=== PATIENT | female | born 1985 | race Caucasian/White ===

== ENCOUNTER 2019-06-10 18:01 | Inpatient (IN) | payer MEDICAID, SELFPAY ==
--- NOTE | 2019-06-10 18:22 | W.PM.HP.N ---
History of Present Illness 33 yo at 41 4/7 with active labor today at home till 6 pm - transferred due to minimal cervical change - ~8cm at 2 pm and again at 4 pm. intact membranes, good mvmt. no freeman,visual changes, dizzy, n/v/d edc 05/30 - early sono consistent first delivered via primary c section for ftp after home and hosp supported labor with pit minor UTD on 24 week scan - 32 week scan confirmed GBS neg, RH pos meds: pn vits only O: uncomfortable with reg mod/strong ctx lungs - clear cvs- reg, no murmur abd - gravid uterus @ costal margin no edema distally cervix - soft, ant, 8 cm, copious mucous, intact, -2, no caput, clearly cara/oa FHTracing cat 1 - strong ctx q 4, scant decel with peak of ctx, mod variability Ass: potential for FTP as with first delivery - given is , not candidate for pit aug. Diana and her partner, Pankaj wish to focus on pain for starters - discussed r/b of epidural given nitrous not available (in use by other patients) They will have low threshold for moving to c/section - if little cervical change or descent over the next hour or two. Will cont monitir, get IV started, obtain routine labds - cont water prn, avoid food for now. Dr. Stein and Sherly Pickard CRNA are both aware. S. Genereaux Meds Home Medications and Allergies Allergies Allergy/AdvReac Type Severity Reaction Status Date / Time No Known Drug Allergies Allergy Unverified 06/21/17 16:07
[2019-06-10] MEDS: Lactated Ringers 1,000 ML 200 ML IV (18:30)
[2019-06-10] MEDS: Oxytocin 10 UNITS/ML VIAL IM (21:21)
== END 2019-06-10 23:25 | disposition home or self-care (01) | DRG 807 ==
PROVIDERS: Admitting Provider Family Medicine; PCP Family Medicine; Visit Provider Family Medicine
DX: O62.3 Precipitate labor (principal); Z37.0 Single live birth; O34.211 Maternal care for low transverse scar from previous cesarean delivery; O48.0 Post-term pregnancy; Z3A.41 41 weeks gestation of pregnancy
CPT/HCPCS: 99220; J2590

== ENCOUNTER 2024-04-12 10:17 | Outpatient (REF) | payer BC, MEDICAID, SELFPAY ==
--- OUTSIDE RECORDS SUMMARY | 2024-04-12 10:22 | XMS_ITS | Encounter Summary ---
Author Organization [facility] Address [address] [place] [address] Care Team Providers Care Medicine Man Name Role Phone Dejuan Garduno ND Primary Care Provider + Reason for Visit * Reason Comments Advice Only Encounter Details Date Type Department Care Team (Late st Contact Info) Description 01/15/2017 10:00 EDT Initial consult [facility] Obstetrics [facility] Midwifery - [address] [phone] Zach Kimball MD [address] [facility], [address] [place] [address] Fetus with viral damage via mother with problem, not applicable or unspecified fetus (Primary Dx) Discharge Disposition: Auto Discharge Social History Tobacco Use Types Packs/Day Years Used Date Smoking Tobacco: Never Assessed Comments Yes Sex and Gender Information Value Date Recorded Sex Assigned at Not on file Gender Identity Not on file Sexual Orientation Not on file documented as of this encounter Last Filed Vital Signs Vital Sign Reading Time Taken Comments Blood Pressure - - Pulse - - Temperature - - Respiratory Rate - - Oxygen Saturation - - Inhaled Oxygen Concentration - - Weight - - Height 158.8 cm (5' 2.5) 01/15/2017 1322 EDT Body Mass Index - - documented in this encounter Discharge Diagnoses Diagnosis O35.3XX0 Maternal care for (suspected) damage to fetus from viral disease in mother, not applicable or unspecified-O35.3XX0[ICD-10-CM] documented in this encounter Discharge Disposition Disposition Code Departure Means Destination Auto Discharge documented in this encounter Progress Notes * Zach Kimball MD - 01/15/2017 1000 EDT January 15December Roslynerica, SANDIE [address] [facility] [address] [place] [address] Re: Diana Farhad Dear Ms. Polo: I had the pleasure of meeting with Ms. Llamas and her partner today. As you know, she is a 31-year-old woman, 3 para 0020, presently at 19w1d. She was referred for an obstetrical screening ultrasound with the request we consult on any abnormal findings. Today we identified a hepatic echogenicity. The couple denies a family history of aneuploidy, genetic diseases/syndromes, multiple miscarriage, defects, stillbirth or mental retardation. She had an obstetrical ultrasound today, and a separate report is enclosed. The findings were essentially normal other than an echogenicity in the left liver margin near the stomach. Liver Calcifications (FLCs) FLCs are hyperechoic areas noted on ultrasound in the liver. The incidence has been estimatedto be 1:1000 to 1:1750.1 There have been a number of etiologies reported for FLCs including infection, vascular events that can affect the liver and hepatic tumors.2 Infectious etiologies have included TORCH infections, including parvovirus and varicella. The have been described as isolated findings or in association with other abnormalities. Some studies have also attempted to separate parenchymal from surface FLCs, though a correlation between location and etiology has not been consistent. Anselmo and Rodolfo segregated FLCs by location.3 They felt that surface calcifications were peritoneal calcifications secondary to meconium peritonitis after ruptured bowel. Nonetheless FLCs have not been directly linked to CF in any of the published series. Nonetheless, CF mutation screening is not unreasonable and has been recommended by some authors. Generally, those that are isolated have good prognoses. Carrie at al reported on 61 patients with FLC.1 Of these, 21 were isolated and 40 were associated with other abnormalities. Among those with other findings, a variety of aneuploidies, CMV and parvovirus were detected. Of those with isolated liver calcifications, one had trisomy 21 and one had parvovirus. Other smaller studies have examined the outcomes of fetuses with FLCs. Lexii and Matilde reported on 14 fetuses with FLCs.4 Of the 9 fetuses with isolated FLCs, all had good outcomes. Among the 5with other findings, trisomy 18 was noted in 2. A series of 33 patients described by Julio [id number] cases of isolated FLCs.5 Of those 25, one had CMV and the other 24 had good outcomes. Of the 8 with associated abnormalities, only 2 had good outcomes. Omid et al reported on 6 cases.6 All 3 of the cases of isolated FLC were normal. Pedrito described 5 fetuses with FLC.7 In that series, the 4 with isolated FLC were normal. Finally, Maci and Pedro reported on 7 cases.8 Of the 5 with iso lated calcifications, all were normal. One of the 2 with other findings had trisomy 18. Together, these smaller studies include 46 fetuses with isolated FLCs, and none of these fetuses had aneuploidy. Another study reported on 26 fetuses with isolated calcifications in the left upper quadrant of theabdomen.9 They did not distinguish between the calcifications noted along the stomach, in the liveror in the spleen. All of these fetuses did well with a normal outcome. In considering these articles together, we are left with about 93 fetuses with isolated calcifications in the liver or the LUQ. Among those one had parvovirus, one had CMV and one had Down syndrome. We do not have a large enough number of fetuses to be able to calculate a positive predictive value or relative risk. In the case with Down syndrome, we do not have information on the patient???s age or other risk factors. In any case, we would not generally think of this as a marker for trisomy 21. In my own experience, I have followed a number of women with isolated FLCs without any turning out to have anything wrong. We have seen one patient here with a gastric wall echogenicity that tur keo out to have CMV. I primarily discussed viral infections, aneuploidy and cystic fibrosis screening with them. She hadnot had prior aneuploidy testing. I discussed the risks and benefits of amniocentesis for karyotype and cell-free DNA testing. I reviewed the lack of therapy for CMV infections during and the fact that a significant number of women (30-40% in [place]) will be found to have an old CMV infection, which will leave her in the ???low?? risk rather than the ???no?? risk category. They have requested parvovirus, cell-free DNA testing and cystic fibrosis mutation screeningand those were drawn today. For ultrasound follow-up, I would also get a scan at 32-34 weeks??? to reassess the liver echogenicity. No follow-up scans have been scheduled so that you can decide what you would like to do yourselves and what you???d like done here. Thank you for referring this nice couple and allowing me to participate in their care. I spent my entire 15-minute session counseling them regarding the implications of the hepatic echogenicity. She indicated that she understood the issues that we discussed and that her questions had been answered.Should you have any questions or concerns, please feel free to contact me. Best regards, Zach Kimball MD Director, [facility] Professor of Obstetrics, Gynecology & Reproductive Sciences [facility], Dept. of OBGYN Division of Maternal- Medicine [email or web address] 1. Carrie BUSCH, Pepito A, Magali M, Jennifer F, Luis G, Mei Watkins. hepatic calcifications: diagnosis and outcome. Am J Obstet Gynecol 2002;187:1617-22. 2. Tim K, Kg D, Gill Peraza T. follow-up of hepatic calcification detected by ultrasound. Jbr-Btr 2000;83:231-3. 3. Anselmo SG, Rodolfo DJ. The significance of echogenic areas in the abdomen. Ultrasound Obstet Gynecol 1996;7:293-8. 4. Lucretiashtein M, Matilde S. diagnosis of liver calcifications. Obstet Gynecol 1995;86:739-43. 5. Sosa E, Kaycee Y, Fer A, Sadiq A, Russellon MY. pyelectasis: does gender modify the risk of major trisomies? Obstetrics and gynecology 2006;107:877-9. 6. Omid EF, Ryvannesa F, Melly C, Malia P, Anthony F. Hepatic cysts and hyperechogenicities: assessment and unifying theory on their origin. Pediatr Radiol 1994;24:569-72. 7. Pedrito R, Pedro DS, Kimberlee A, et al. ultrasonographic diagnosis of hepatic hyperechogenicities: clinical significance and implications for management. Ultrasound Obstet Gynecol 1996;7:251-5. 8. Maci Courtney, Pedro MARADIAGA. intrahepatic hyperechogenic foci: ultrasound diagnosisand outcome. Prenat Diagn 1998;18:339-42. 9. Moose EK, Edward EK, Darryl TH. Isolated echogenic foci in the left upper quadrant of the abdomen:are they significant? J Ultrasound Med 2004;23:483-8. documented in this encounter Plan of Treatment Not on file documented as of this encounter Results * CYSTIC FIBROSIS MUTATION ANALYSIS, 106 PANEL (01/15/2017 12:52 EDT) Pathologist [facility] Result Summary NEGATIVE 01/21/2017 7:46 EDT [facility] Result (Note) 01/21/2017 7:46 EDT [facility] Comment:None of the listed m utations were detected. Interpretation (Note) 01/21/2017 7:46 [facility] Comment: Having excluded the listed mutations, this result decreases the likelihood but does not exclude the possibility that this individual is a carrier of or affected with cystic fibrosis (CF). The degree to which this result reduces the patient's risk depends on the ethnic background and family history of the patient. Because this information was not provided, we are unable to provide a revised risk assessment at this time. . The risk that this individual is a carrier of another CF mutation is listed below. . Ethnicity ? Risk ? (Detection rate, Carrier Freq) Northern ? (91%, 10/07) Mixed ?134 ? (82%, 10/07) Southern ? 115 ? (79%, 10/07) Eastern ?127 ? (77%, 10/12) Ashkenazi Temple ? (97%, 10/07) [place] ? (91%, 10/07) ? (81%, ) Scottish ? 251 ? (82%, 46) Scottish* ? 194 ? (54%, ) *does not apply to individuals of [place] ancestry . These calculations are based on the mutation detection rates and population carrier frequencies noted in the chart and assume no family history of CF. Because there is little information available about the carrier frequency and mutation detection rates for individuals of other ethnicities, we are unable to provide a revised risk assessment for ethnicities other than those listed. . If the patient has a family history of CF, contact our laboratory for a revised risk assessment. If there is a suspected diagnosis of CF, correlation between other laboratory tests and clinical history is recommended. Additional genetic testing strategies, such as full gene analysis of the CFTR gene (CFTRZ / CFTR Gene, Full Gene Analysis), should be considered for identifying mutations that are not detected by this assay. Contact the [facility] at for further discussion regarding this option. . A genetic consultation may be of benefit. . ADDITIONAL INFORMATION An online research opportunity called [employer] ([email or web address]), a project of [employer], is available for the recipient of this genetic test. This patient registry collects de-identified genetic and health information to advance the knowledge of genetic variants. [facility] is a collaborator of [employer]. This may not be applicable for all tests. . Test results should be interpreted in the context of clinical findings, family history, and other laboratory data. Misinterpretation of results may occur if the information provided is inaccurate or incomplete. . Rare polymorphisms exist that could lead to false-negative or false-positive results. If results obtained do not match the clinical findings, additional testing should be considered. . Bone Marrow transplants from allogenic donors will interfere with testing. Call [facility] for instructions for testing patients who have received a bone marrow transplant. . Multiple in-silico evaluation tools may have been used to assist in the interpretation of these results. Of note, the sensitivity and specificity of these tools for the determination of pathogenicity is currently unvalidated. . This test was developed and its performance characteristics determined by [facility] in a manner consistent with CLIA requirements. This test has not been cleared or approved by the U.S. Food and Drug Administration. Specimen WB Whole Blood 01/21/2017 7:46 [facility] Method (Note) 01/21/2017 7:46 [facility] Comment: The multiplex PCR based assay utilizing the Cyphort Array platform was used to detect 106 mutations, including the 23 mutations specified in the [employer] (ACMG) standards for population based carrier screening. The mutations are as follows: [id number], ftncnI481, G542X, G85E, R117H, R0570W (TGG>TGA), 621+1G>T, 711+1G>T, Y3615H (C>A), J4114J (C>G), R334W, R347P, A455E, 1717-1G>A, R553X, R560T, G551D, 1898+1G>A, 2184delA, 2789+5G>A, 3120+1G>A, W1170L, 3659delC, 3849+10kbC>T, the deletion of exons 2-3, 296+2T>A, E60X, R75X, 394_395delTT, 405+1G>A, 406-1G>A, E92X, 444delA, 457TAT>G, R117C, Y122X, 574delA, 663delT, G178R, 711+5G>A, 712-1G>T, H199Y, P205S, L206W, 477xtu46, 935delA, 936delTA, zomufT091, 1078delT, G330X, T338I, R347H, R352Q, Q359K, T360K, 1288insTA, S466X (C>A), S466X (C>G), G480C, Q493X, 1677delTA, C524X, S549N, S549R (T>G), Q552X, A559T, 1811+1.6kbA>G, 1812-1G>A, 1898+1G>T, 1898+1G>C, 1898+5G>T, P574H, 6871isj04, 2043delG, 5106ivu9>A, 7019dio52odi0, 2108delA, 2143delT, 2183_2184delAAinsG, 2184insA, R709X, K710X, 2307insA, R764X, Q890X, 2869insG, 3171delC, 7118swo7, E7075L, W5835Z (TGG>TAG), F3664Z (C>G), P6254A (C>A), F6058T, H8439Q, M2706A, H8922L, 2241vty0, V4249W, B3203E (TGG>TAG), 3791delC, F0758Q, 3876delA, S6642Y, M2991Q, 3905insT, and 4016dupT mutations are detected. Poly T determination and confirmatory testing of homozygous results are performed as reflex tests when appropriate. Released By Yovani Brannon Jr., Ph.D. 01/21/2017 7:46 EDT [facility] Comment: Performed or Referred by: [facility], [facility] [place] [address], Lab Dir: Dallas Viramontes II, M.D., Ph.D. Blood specimen (specimen) BLOOD SPECIMEN / Unknown 01/15/2017 12:52 EDT 01/15/2017 13:24 EDT Zach Kimball MD CHEMISTRY & BLOO D GAS ORDERABLES [facility] [address] [place] [address] * PARVOVIRUS ANTIBODY (01/15/2017 12:52 EDT) Parvovirus B19 Ab, IgG, S 0.21 <0.90 index 01/19/2017 8:06 EDT [facility] Comment: (Note) Negative Parvovirus B19 Ab, IgM, S 0.11 <0.90 index 01/19/2017 8:06 EDT [facility] Comment: (Note) Negative Parvovirus Interpretation (Note) 01/19/2017 8:06 EDT [facility] Comment: No antibody detected. Performed by: [facility]: [facility] [address], [place] [address], Lab Dir: Dallas Viramontes II, M.D., Ph.D. Blood specimen (specimen) BLOOD SPECIMEN / Unknown 01/15/2017 12:52 EDT 01/15/2017 13:24 EDT Zach Kimball MD IMMUNOLOGY AND S EROLOGY ORDERABLES Performing Organization Address City/State/[facility] Co de Phone Number [facility] [address] [place] [address] documented in this encounter Visit Diagnoses Diagnosis Fetus with viral damage via mother with problem, not applicable or unspecified fetus- Primary documented in this encounter Care Teams Medicine Man Relationship Specialty Start Date End Date Dejuan Garduno ND [address] [place] [address],[address] [place] [address] PCP - General 01/14/17 documented as of this encounter
--- OUTSIDE RECORDS SUMMARY | 2024-04-12 10:22 | XMS_ITS | Clinical Summary ---
Author Organization [facility] Address [address] [place] [address] Care Team Providers Care Fitness/Wellness Director Name Role Phone Dejuan Garduno ND Primary Care Provider + Allergies No known active allergies Medications No known medications Active Problems Problem Noted Date Diagnosed Date complicated by genitourinary abn ormality 02/02/2019 Advanced maternal age in multigravida, second tr imester 02/02/2019 Resolved Problems Problem Noted Date Diagnosed Date Resolved Date Genetic counseling and testing 01/15/2017 02/02/2019 Fetus with viral damage via mother with problem 01/15/2017 02/02/2019 Encounters Date Type Department Care Team Description 03/20/2024 10:13 EDT - 03/20/2024 23:59 EDT Hospital Encounter [facility] [address] [place] [address] Inconclusive mammogram Discharge Disposition: Home or Self Care 03/10/2024 7:41 EDT - 03/10/2024 23:59 EDT Hospital Encounter [facility] [address] [place] [address] Encounter for screening mammogram for malignant neoplasm of breast Discharge Disposition: Home or Self Care from Last 3 Months Social History Tobacco Use Types Packs/Day Years Used Date Smoking Tobacco: Never Assessed Interpersonal Safety Answer Date Record ed Physically Hurt Never 04/15/2020 Verbally Threaten Not on file 04/15/2020 Sex and Gender Information Value Date Recorded Sex Assigned at Not on file Gender Identity Not on file Sexual Orientation Not on file Obstetrics History Para Term AB IAB SAB Ectopic Multiple Livin g Live Births 6 2 1 3 2 1 2 Date Outcome GA Total Labor Labor/2nd/3rd Weight Sex Type Anes PTL Kath A1 A5 Name Clin AB IAB IAB Para 2017 Term Living Last Filed Vital Signs Vital Sign Reading Time Taken Comments Blood Pressure - - Pulse - - Temperature - - Respiratory Rate - - Oxygen Saturation - - Inhaled Oxygen Concentration - - Weight - - Height 160 cm (5' 3) 03/10/2024 0750 EDT Body Mass Index - - Plan of Treatment Health Maintenance Due Date Last Done Comments Hepatitis C Screen 1983 Hepatitis B Vaccine (1 of 3 - 19+ 3-dose series) 10/29 COVID-19 Vaccine (2022- season) 2023 Procedures Procedure Name Priority Date/Time Associated Diagnosis Comments MA BREAST DIAGNOSTIC RIGHT Routine 03/20/2024 11:07 EDT Inconclusive mammogram MA BREAST SCREENING DESI BILATERAL Routine 03/10/2024 8:01 EDT Encounter for screening mammogram for malignant neoplasm of breast from Last 3 Months Results * MA BREAST DIAGNOSTIC RIGHT (03/20/2024 11:07 EDT) Anatomical Region Laterality Modality Breast Right Mammography 03/20/2024 13:0 2 EDT Impressions 03/20/2024 13:02 EDT RIGHT BREAST IMPRESSION: BI-RADS Category 3: Probably benign. * ??Loosely grouped calcifications in the posterior outer breast, probably benign in appearance. Risk versus benefits of short-term follow-up versus biopsy were discussed in detail with the patient. Patient is comfortable with proceeding with short- term follow-up. Therefore, follow-up diagnostic mammography is recommended in 6 months to ensure stability. RECOMMENDATION: * ??Follow-up right breast diagnostic mammography in 6 months. The interpreting radiologist discussed these findings and recommendations with the patient shortly after completion of the examination. OVERALL ASSESSMENT: BI-RADS Category 3: Probably benign. These results will be communicated to the patient via a lay letter from Radiology. [id number] Narrative 03/20/2024 13:02 EDT MA BREAST DIAGNOSTIC RIGHT ?? SIGNS AND SYMPTOMS/COMMENTS: * ??Right breast callback- suspicious findings on initial films; R92.2:Inconclusive mammogram. * ??Possible calcifications on recent baseline screening mammography. COMPARISONS: Baseline screen mammography on 03/10/2024. FINDINGS: RIGHT BREAST MAMMOGRAPHY: Full field digital whole breast 2-D ML, and spot magnification CC and ML views, were obtained. CAD technology was utilized. * ??The breasts are heterogeneously dense, which may obscure small masses. * ??Corresponding to the finding in question on recent baseline screening mammography, several loosely grouped tiny rounded and a few punctate calcifications are identified in the posterior outer breast. No associated mass or architectural distortion is identified. * ??It should be noted, multiple additional tiny rounded calcifications were identified in the remainder of both breasts on recent baseline screening mammography, otherwise relatively symmetric. Resulting Agency Comment [id number] Dejuan Garduno ND IMG MAMMOGRAPHY ORDERABLES * (ABNORMAL) MA BREAST SCREENING DESI BILATERAL (03/10/2024 8:01 EDT) Anatomical Region Laterality Modality Breast Bilateral Mammography 03/10/2024 10:2 0 EDT Impressions 03/10/2024 10:20 EDT Incomplete, need additional imaging evaluation. RECOMMENDATION: Need additional imaging evaluation. * ??Right breast diagnostic mammography recommended. OVERALL ASSESSMENT: BI-RADS 0: Incomplete- Need additional imaging evaluation and/ or prior mammograms for comparison. These results will be communicated to your patient via a lay letter from Radiology. If any additional imaging is needed we will contact your patient directly. [id number] Narrative 03/10/2024 10:20 EDT MA BREAST SCREENING DESI BILATERAL ??03/10/2024 7:46 AM History: ROUTINE SCREENING;Z12.31:Encounter for screening mammogram for malignant neoplasm of breast Comparison: ??This is the patient's baseline exam . ? Technique: Routine 3D tomosynthesis with synthesized 2D views with CAD Breast Composition: The breasts are heterogeneously dense, which may obscure small masses. Bilateral Breast Findings: Possible asymmetric calcifications in the posterior outer right breast. Left breast unremarkable. Resulting Agency Comment [id number] Rena Chapin IMG MAMMOGRAPHY O RDERABLES from Last 3 Months Care Teams Fitness/Wellness Director Relationship Specialty Start Date End Date Dejuan Garduno ND [address] [place] [address],[address] [place] [id number] PCP - General 01/14/17
--- OUTSIDE RECORDS SUMMARY | 2024-04-12 10:22 | XMS_ITS | Encounter Summary ---
Author Organization [facility] Address [address] [place] [address] Care Team Providers Care Auger Machine Offbearer Name Role Phone Dejuan Garduno ND Primary Care Provider + Encounter Details Date Type Department Care Team ([facility] st Contact Info) Description 01/26/2017 Documentation Visit [facility] Obstetrics & Midwifery - [facility] [address] [place], [place] [address] Shaheen Coppola MD [address] [facility], [address] [place] [address] Social History Tobacco Use Types Packs/Day Years Used Date Smoking Tobacco: Never Assessed Comments Yes Sex and Gender Information Value Date Recorded Sex Assigned at Not on file Gender Identity Not on file Sexual Orientation Not on file documented as of this encounter Progress Notes * Gege Alonso - 01/26/2017 1601 EDT Informaseq results received 01.26.17. Dr. Coppola has informed patient. Results faxed to referring provider. Josselin Alonso documented in this encounter Plan of Treatment Not on file documented as of this encounter Visit Diagnoses Not on filedocumented in this encounter Care Teams Auger Machine Offbearer Relationship Specialty Start Date End Date Dejuan Garduno ND [address] [place] [address],[address] [place] [address] PCP - General 01/14/17 documented as of this encounter
--- OUTSIDE RECORDS SUMMARY | 2024-04-12 10:22 | XMS_ITS | Encounter Summary ---
Author Organization Health system Address [address] [place] [address] Care Team Providers Care Screen Cleaner Name Role Phone Dejuan Garduno ND Primary Care Provider + Reason for Referral * Radiology Services (Routine/Next Available) - Authorization Not Required Specialty Diagnoses / Procedures Referred By Jacey t Referred To Contact Diagnoses Encounter for screening mammogram for malignant neoplasm of breast Procedures MA BREAST SCREENING DESI BILATERAL Rena Abdalla [address] [place] [address] [facility] Referral ID Status Reason Start Date Expiration Date Visits Requested Visits Authorized [id number] Authorization Not Required 01/18/2024 1 1 Reason for Visit * Radiology Services (Routine/Next Available) - Authorization Not Required Specialty Diagnoses / Procedures Referred By Jacey argueta Referred To Contact Diagnoses Encounter for screening mammogram for malignant neoplasm of breast Procedures MA BREAST SCREENING DESI BILATERAL Rena Abdalla [address] [place] [address] [facility] Referral ID Status Reason Start Date Expiration Date Visits Requested Visits Authorized [id number] Authorization Not Required 01/18/2024 1 1 Encounter Details Date Type Department Care Team (Latest Contact Info) Description 03/10/2024 7:41 EDT - 03/10/2024 23:59 EDT Hospital Encounter [facility] Mammography [address] [place], [place] [id number] Encounter for screening mammogram for malignant neoplasm of breast Discharge Disposition: Home or Self Care Social History Tobacco Use Types Packs/Day Years [...] 0750 EDT Body Mass Index - - documented in this encounter Discharge Disposition Disposition Code Departure Means Destination Home or Self Care documented in this encounter Plan of Treatment Not on file documented as of this encounter Procedures Procedure Name Priority Date/Time Associated Diagnosis Comments MA BREAST SCREENING DESI BILATERAL Routine 03/10/2024 8:01 EDT Encounter for screening mammogram for malignant neoplasm of breast documented in this encounter Results * (ABNORMAL) MA BREAST SCREENING DESI BILATERAL [...] needed we will contact your patient directly. [id number] Narrative 03/10/2024 10:20 EDT MA BREAST SCREENING [...] breast. Left breast unremarkable. Resulting Agency Comment [id number] Rena Broussard Luis Chapin IMG MAMMOGRAPHY O RDERABLES documented in this encounter Visit Diagnoses Diagnosis Encounter for screening mammogram for malignant neoplasm of breast Other screening mammogram documented in this encounter Care Teams Screen Cleaner Relationship Specialty Start Date End Date Dejuan Garduno ND [address] [place] [address],[address] [place] [phone] PCP - General 01/14/17 documented as of this encounter
--- OUTSIDE RECORDS SUMMARY | 2024-04-12 10:22 | XMS_ITS | Encounter Summary ---
Author Organization [facility] Address [address] [place] [address] Care Team Providers Care Industrial Conveyor Belt Repairer Name Role Phone Dejuan Garduno ND Primary Care Provider + Reason for Visit * Reason Onset Date Comments Results 01/26/2017 Encounter Details Date Type Department Care Team ([facility] Contact Info) Description 01/26/2017 Telephone [facility] Women's Services - [address] [phone] Shaheen Coppola MD [address] [facility], [address] [place] [address] Results Social History Tobacco Use Types Packs/Day Years Used Date Smoking Tobacco: Never Assessed Comments Yes Sex and Gender Information Value Date Recorded Sex Assigned at Not on file Gender Identity Not on file Sexual Orientation Not on file documented as of this encounter Miscellaneous Notes * Telephone Encounter - Shaheen Coppola MD - 01/26/2017 1524 EDT Called to report negative NIPT, negative CF mutation screen and negative Parvovirus results. Patient is aware. documented in this encounter Plan of Treatment Not on file documented as of this encounter Visit Diagnoses Not on filedocumented in this encounter Care Teams Industrial Conveyor Belt Repairer Relationship Specialty Start Date End Date Dejuan Garduno ND [address] [place] [address],[address] [place] [phone] PCP - General 01/14/17 documented as of this encounter
--- OUTSIDE RECORDS SUMMARY | 2024-04-12 10:22 | XMS_ITS | Encounter Summary ---
Author Organization [facility] Address [address] [place] [address] Care Team Providers Care Precision Optical Goods Worker Name Role Phone Dejuan Garduno ND Primary Care Provider + Reason for Referral * Radiology Services (Routine/Next Available) - Authorization Not Required Specialty Diagnoses / Procedures Referred By Jacey argueta Referred To Contact Diagnoses Inconclusive mammogram Procedures MA BREAST DIAGNOSTIC RIGHT Dejuan Garduno, ND [address] [place] [address],[address] [address] [facility] Referral ID Status Reason Start Date Expiration Date Visits Requested Visits Authorized [id number] Authorization Not Required 03/13/2024 1 1 Reason for Visit * Radiology Services (Routine/Next Available) - Authorization Not Required Specialty Diagnoses / Procedures Referred By Jacey argueta Referred To Contact Diagnoses Inconclusive mammogram Procedures MA BREAST DIAGNOSTIC RIGHT JunerehanaDejuan, ND [address] [facility],[address] [address] [facility] [place] Referral ID Status Reason Start Date Expiration Date Visits Requested Visits Authorized [id number] Authorization Not Required 03/13/2024 1 1 Encounter Details Date Type Department Care Team (Latest Contact Info) Description 03/20/2024 10:13 EDT - 03/20/2024 23:59 EDT Hospital Encounter [facility] - [facility] Mamm[place] [address] [place] [address] Inconclusive mammogram Discharge Disposition: Home or Self Care Social History Tobacco Use Types Packs/Day Years Used Date Smoking Tobacco: Never Assessed Interpersonal Safety Answer Date Record ed Physically Hurt Never 04/15/2020 Verbally Threaten Not on file 04/15/2020 Sex and Gender Information Value Date Recorded Sex Assigned at Not on file Gender Identity Not on file Sexual Orientation Not on file documented as of this encounter Discharge Disposition Disposition Code Departure Means Destination Home or Self Care documented in this encounter Plan of Treatment Not on file documented as of this encounter Procedures Procedure Name Priority Date/Time Associated Diagnosis Comments MA BREAST DIAGNOSTIC RIGHT Routine 03/20/2024 11:07 EDT Inconclusive mammogram documented in this encounter Results * MA BREAST DIAGNOSTIC RIGHT (03/20/2024 [...] patient via a lay letter from Radiology. [id number] Narrative 03/20/2024 13:02 EDT MA BREAST DIAGNOSTIC [...] mammography, otherwise relatively symmetric. Resulting Agency Comment [id number] Dejuan Garduno ND IM MAMMOGRAPHY ORDERABLES documented in this encounter Visit Diagnoses Diagnosis Inconclusive mammogram documented in this encounter Care Teams Precision Optical Goods Worker Relationship Specialty Start Date End Date Dejuan Garduno ND [address] [place] [address],[address] [place] [address] PCP - General 01/14/17 documented as of this encounter
--- OUTSIDE RECORDS SUMMARY | 2024-04-12 10:22 | XMS_ITS | Encounter Summary ---
Author Organization [facility] Address [address] [place] [address] Care Team Providers Care Perinatal Coordinator Name Role Phone Dejuan Garduno ND Primary Care Provider + Encounter Details Date Type Department Care Team (Late st Contact Info) Description 01/15/2017 Results Only Imaging [facility] [phone] Christ, December, PLANT ENGINEERING SUPERVISOR [address] [facility],[address] [place], [place] [address] Social History Tobacco Use Types Packs/Day Years Used Date Smoking Tobacco: Never Assessed Comments Yes Sex and Gender Information Value Date Recorded Sex Assigned at Not on file Gender Identity Not on file Sexual Orientation Not on file documented as of this encounter Plan of Treatment Not on file documented as of this encounter Procedures Procedure Name Priority Date/Time Associated Diagnosis Comments GROUP HOME DETAILED 01/15/2017 11:50 EDT documented in this encounter Results * GROUP HOME DETAILED (01/15/2017 11:50 EDT) Anatomical Region Laterality Modality Other 01/15/2017 11:5 0 EDT 01/15/2017 13:43 EDT Narrative 01/15/2017 13:43 [place]T [place] [address] due to finding. History ======= General History Height 157 cm Height (ft) ?5 ft Height (in) ?2 in Previous Outcomes ?3 Para ?? 0 Abortions (A) ??2 Maternal Assessment Height 157 cm Height (ft) ?5 ft Height (in) ?2 in Physical Exam Initial weight 63 kg Initial weight (lb) ?138 lb Initial BMI ?25.24 kg/m? Number of fetuses: 1. Dating ======= Method of dating: ??based on the LMP LMP on: ?09/03/2016 GA by LMP ??19 w + 1 d TARIQ by LMP : ? 06/10/2017 Stated Dating on: ?11/12/2016 GA at stated dating date 10 w + 2 d GA by stated dating ??19 w + 3 d TARIQ by stated dating: ?06/08/2017 Stated dating by: ?outside ultrasound Ultrasound examination on: 01/15/2017 GA by U/S based upon: ??AC, BPD, Femur GA by U/S ??19 w + 1 d TARIQ by U/S: ?06/10/2017 Assigned: ??Dating performed on 01/15/2017 Based on the LMP Assigned GA ?19 w + 1 d Assigned TARIQ: ??06/10/2017 General Evaluation Cardiac activity: Present. FHR 142 bpm. movements: visualized. Presentation: cephalic, spine anterior. Placenta: posterior. Umbilical cord: Cord vessels: 3 vessel cord. Cord insertion: placental insertion: normal. Amniotic fluid: Amount of AF: normal. Biometry Biometry BPD ?43.9 mm 57% 19w 2d Hadlock OFD ?58.1 mm 86% 20w 2d Ray HC 164.0 mm AC 136.4 mm ?43% 19w 1d Hadlock Femur ??29.6 mm 65% 19w 2d Ray Cerebellum tr ??19.9 mm 63% 19w 6d Watson CM 4.7 mm ??47% Nicolaides Nuchal fold ?4.44 mm Humerus ?29.5 mm 69% 19w 4d Ray EFW ?275 g Calculated by: Hadlock ([id number]) EFW (lb) ?? 0 lb EFW (oz) ?? 10 oz Cephalic index 0.76 ?16% Nicolaides HC / AC ?1.20 ?70% Hadlock FL / BPD ?? 0.67 ?44% Hadlock FL / AC ?0.22 ?62% Hadlock FHR ?142 bpm Head / Face / Neck [employer] 7.0 mm Nasal bone 5.0 mm Extremities / Bony Struc Radius 25.5 mm 64% Chitty Ulna ?? 27.4 mm 67% 20w 0d Ray Tibia ??27.4 mm 80% 19w 6d Ray Fibula 26.6 mm 53% 19w 2d Ray Foot ?? 31.0 mm 66% Chitty Anatomy Cranium: ?? normal Lateral ventricles: ?normal Choroid plexus: ?normal Midline falx: ??normal Cavum septi pellucidi: normal Cerebellum: ?normal Cisterna magna: ?normal Parenchyma: ?normal Cerebellar lobes: ??normal Vermis: ?normal Neck: ??normal Nuchal fold: ?? normal Lips: ??normal Profile: ?? normal Nose: ??normal Maxilla: ?? normal Mandible: ??normal 4-chamber view: ?normal RVOT: ??normal LVOT: ??normal Situs: normal Aortic arch: ?? normal SVC: ?? normal IVC: ?? normal 3-vessel view: normal 3-[id number]-[id number] view: normal Rt lung: ?? normal Lt lung: ?? normal Diaphragm: normal Cord insertion: ?normal Stomach: ?? normal Bladder: ?? normal Genitals: ??normal Abdom. wall: ?? normal Rt kidney: normal Lt kidney: normal Liver: abnormal Liver: calcification Cervical spine: ?normal Thoracic spine: ?normal Lumbar spine: ??normal Sacral spine: ??normal Skeleton: ??normal Arms: ??normal Legs: ??normal Rt arm: ?normal Lt arm: ?normal Rt hand: ?? normal Lt hand: ?? normal Rt leg: ?normal Lt leg: ?normal Rt foot: ?? normal Lt foot: ?? normal Gender: ?male Wants to know gender: ??yes Aneuploidy Screening Age ?31 yrs Echogenic focus: ?? no Include: ?? intracardiac echogenic focus Include: ?? ventriculomegaly Include: ?? nuchal fold Include: ?? echogenic bowel Include: ?? mild hydronephrosis Ventriculomegaly: ??no Nuchal fold: ?? normal Echogenic bowel: ?? no Pyelectasis: ?? no Short femur: ?? no Include: ?? short humerus Include: ?? nasal bone Short humerus: no Nasal bone: ?present Display risk: ??Risk at time of screening Background risk at time of screening ?? 471 Background risk at term ?563 Adjusted risk at time of screening 1,270 Adjusted risk at term ??1,520 Maternal Structures Uterus / Cervix Uterus: ?Appears normal Cervix: ?Appears normal Ovaries / Tubes / Adnexa Rt ovary: ??Visualized, normal appearance Lt ovary: ??Visualized, normal appearance Method ======== Transabdominal ultrasound examination, Voluson E10. View: Sufficient. Impression This study [place] a 16421 but was extended to a [address] [place] to [place]. [id number] Obstetrical ultrasound with and maternal evaluation, including detailed anatomic examination This is a matias gestation. Biometry is consistent with menstrual dating. There is a liver calcification in the LUQ. Otherwise, the anatomy appears normal as noted above; however, ultrasound cannot detect all anomalies. As per the [facility] guidelines, the following were evaluated and were normal: the cerebellum (including lobes and vermis), facial profile, the chest (including examination for masses, effusion, integrity of both sides of the diaphragm and lung parenchyma), abdomen for ascites, 12-long bones with normal architecture/position of limbs, hands and feet, placental insertion site of the umbilical cord and placenta for masses. The amniotic fluid volume is normal. There is trunk and extremity movement noted. Please see separate consultation letter. Follow-up Recommend follow-up at 32 weeks' to reassess the liver. Comment ========= This follow-up has not been scheduled. Procedure Note Zach Kimball MD - 01/15/2017 [place] [address] due to finding. History ======= General History Height 157 cm Height (ft) 5 ft Height (in) 2 in Previous Outcomes 3 Para 0 Abortions (A) 2 Maternal Assessment Height 157 cm Height (ft) 5 ft Height (in) 2 in Physical Exam Initial weight 63 kg Initial weight (lb) 138 lb Initial BMI 25.24 kg/m? Number of fetuses: 1. Dating ======= Method of dating: based on the LMP LMP on: 09/03/2016 GA by LMP 19 w + 1 d TARIQ by LMP : 06/10/2017 Stated Dating on: 11/12/2016 GA at stated dating date 10 w + 2 d GA by stated dating 19 w + 3 d TARIQ by stated datin06/08/2017 Stated dating by: outside ultrasound Ultrasound examination on: 01/15/2017 GA by U/S based upon: AC, BPD, Femur GA by U/S 19 w + 1 d TARIQ by U/S: 06/10/2017 Assigned: Dating performed on 01/15/2017 Based on the LMP Assigned GA 19 w + 1 d Assigned TARIQ: 06/10/2017 General Evaluation Cardiac activity: Present. FHR 142 bpm. movements: visualized. Presentation: cephalic, spine anterior. Placenta: posterior. Umbilical cord: Cord vessels: 3 vessel cord. Cord insertion: placental insertion: normal. Amniotic fluid: Amount of AF: normal. Biometry Biometry BPD 43.9 mm 57% 19w 2d Hadlock OFD 58.1 mm 86% 20w 2d Ray HC 164.0 mm AC 136.4 mm 43% 19w 1d Hadlock Femur 29.6 mm 65% 19w 2d Ray Cerebellum tr 19.9 mm 63% 19w 6d Watson CM 4.7 mm 47% Nicolaides Nuchal fold 4.44 mm Humerus 29.5 mm 69% 19w 4d Ray EFW 275 g Calculated by: Hadlock ([id number]) EFW (lb) 0 lb EFW (oz) 10 oz Cephalic index 0.76 16% Nicolaides HC / AC 1.20 70% Hadlock FL / BPD 0.67 44% Hadlock FL / AC 0.22 62% Hadlock FHR 142 bpm Head / Face / Neck [employer] 7.0 mm Nasal bone 5.0 mm Extremities / Bony Struc Radius 25.5 mm 64% Chitty Ulna 27.4 mm 67% 20w 0d Ray Tibia 27.4 mm 80% 19w 6d Ray Fibula 26.6 mm 53% 19w 2d Ray Foot 31.0 mm 66% Chitty Anatomy Cranium: normal Lateral ventricles: normal Choroid plexus: normal Midline falx: normal Cavum septi pellucidi: normal Cerebellum: normal Cisterna magna: normal Parenchyma: normal Cerebellar lobes: normal Vermis: normal Neck: normal Nuchal fold: normal Lips: normal Profile: normal Nose: normal Maxilla: normal Mandible: normal 4-chamber view: normal RVOT: normal LVOT: normal Situs: normal Aortic arch: normal SVC: normal IVC: normal 3-vessel view: normal [id number]-[id number] view: normal Rt lung: normal Lt lung: normal Diaphragm: normal Cord insertion: normal Stomach: normal Bladder: normal Genitals: normal Abdom. wall: normal Rt kidney: normal Lt kidney: normal Liver: abnormal Liver: calcification Cervical spine: normal Thoracic spine: normal Lumbar spine: normal Sacral spine: normal Skeleton: normal Arms: normal Legs: normal Rt arm: normal Lt arm: normal Rt hand: normal Lt hand: normal Rt leg: normal Lt leg: normal Rt foot: normal Lt foot: normal Gender: male Wants to know gender: yes Aneuploidy Screening Age 31 yrs Echogenic focus: no Include: intracardiac echogenic focus Include: ventriculomegaly Include: nuchal fold Include: echogenic bowel Include: mild hydronephrosis Ventriculomegaly: no Nuchal fold: normal Echogenic bowel: no Pyelectasis: no Short femur: no Include: short humerus Include: nasal bone Short humerus: no Nasal bone: present Display risk: Risk at time of screening Background risk at time of screening 471 Background risk at term 563 Adjusted risk at time of screening 1,270 Adjusted risk at term 1,520 Maternal Structures Uterus / Cervix Uterus: Appears normal Cervix: Appears normal Ovaries / Tubes / Adnexa Rt ovary: Visualized, normal appearance Lt ovary: Visualized, normal appearance Method ======== Transabdominal ultrasound examination, Voluson E10. View: Sufficient. Impression This study [place] as a 69373 but was extended to a 29029 [place] to [place]. [id number] Obstetrical ultrasound with and maternal evaluation, including detailed anatomic examination This is a matias gestation. Biometry is consistent with menstrual dating. There is a liver calcification in the LUQ. Otherwise, the anatomy appears normal as noted above; however, ultrasound cannot detect all anomalies. As per the [facility] guidelines, the following were evaluated and were normal: the cerebellum (including lobes and vermis), facial profile, the chest (including examination for masses, effusion, integrity of both sides of the diaphragm and lung parenchyma), abdomen for ascites, 12-long bones with normal architecture/position of limbs, hands and feet, placental insertion site of the umbilical cord and placenta for masses. The amniotic fluid volume is normal. There is trunk and extremity movement noted. Please see separate consultation letter. Follow-up Recommend follow-up at 32 weeks' to reassess the liver. Comment ========= This follow-up has not been scheduled. Ivonne GUTIERREZ US GROUP HOME ORDERAB LES documented in this encounter Visit Diagnoses Not on filedocumented in this encounter Care Teams Perinatal Coordinator Relationship Specialty Start Date End Date Dejuan Garduno ND [address] [place] [address],[address] [place] [address] PCP - General 01/14/17 documented as of this encounter
--- OUTSIDE RECORDS SUMMARY | 2024-04-12 10:22 | XMS_ITS | Encounter Summary ---
Author Organization [facility] Address [address] [place] [address] Care Team Providers Care Grinder Operator External Tool Name Role Phone Dejuan Garduno ND Primary Care Provider + Encounter Details Date Type Department Care Team (Late st Contact Info) Description 04/15/2017 Results Only Imaging [facility] [phone] Marilyn Ware [address] [place] [address] Social History Tobacco Use Types Packs/Day Years Used Date Smoking Tobacco: Never Assessed Comments Yes Sex and Gender Information Value Date Recorded Sex Assigned at Not on file Gender Identity Not on file Sexual Orientation Not on file documented as of this encounter Plan of Treatment Not on file documented as of this encounter Procedures Procedure Name Priority Date/Time Associated Diagnosis Comments ALF FOLLOW-UP 04/15/2017 15:13 EDT documented in this encounter Results * ALF FOLLOW-UP (04/15/2017 15:13 EDT) Anatomical Region Laterality Modality Other 04/15/2017 15:1 3 EDT 04/15/2017 15:37 EDT Narrative 04/15/2017 15:37 EDT Indication anomaly: gastrointestinal tract, hepatic calcification. History ======= General History Height 157 cm Height (ft) ?5 ft Height (in) ?2 in Previous Outcomes ?3 Para ?? 0 Abortions (A) ??2 Number of fetuses: 1. Maternal Assessment Height 157 cm Height (ft) ?5 ft Height (in) ?2 in Physical Exam Initial weight 63 kg Initial weight (lb) ?138 lb Initial BMI ?25.24 kg/m? Dating ======= LMP on: ?09/03/2016 GA by LMP ??32 w + 0 d TARIQ by LMP : ? 06/10/2017 Stated Dating on: ?11/12/2016 GA at stated dating date 10 w + 2 d GA by stated dating ??32 w + 2 d TARIQ by stated dating: ?06/08/2017 Stated dating by: ?outside ultrasound Ultrasound examination on: 04/15/2017 GA by U/S based upon: ??AC, BPD, Femur, HC GA by U/S ??32 w + 5 d TARIQ by U/S: ?06/05/2017 Assigned: ??Dating performed on 01/15/2017 Based on the LMP Assigned GA ?32 w + 0 d Assigned TARIQ: ??06/10/2017 General Evaluation Cardiac activity: Present. FHR 126 bpm. movements: visualized. Presentation: cephalic. Placenta: posterior. Amniotic fluid: Amount of AF: normal. MVP 4.3 cm. HALEY 13.3 cm. Q1 2.5 cm, Q2 4.3 cm, Q3 2.8 cm, Q4 3.8 cm. Anatomy Cranium: ?? normal Lateral ventricles: ?normal Midline falx: ??normal Cranium: ?? normal shape and size 4-chamber view: ?normal Stomach: ?? normal Kidneys: ?? normal Bladder: ?? normal Liver: abnormal Liver: calcification Gender: ?male Wants to know gender: ??yes Biometry Biometry BPD ?86.8 mm 98% 35w 0d Hadlock OFD ?103.3 mm ?84% 33w 5d Ray HC 302.2 mm ?64% 32w 5d [place] AC 283.8 mm ?61% 32w 3d Hadlock Femur ??59.1 mm 27% 30w 5d Ray Humerus ?54.3 mm 39% 31w 4d Ray EFW ?1,939 g 39% Narvaez Calculated by: Hadlock ([id number]) EFW (lb) ?? 4 lb EFW (oz) ?? 4 oz Cephalic index 0.84 ?88% Nicolaides HC / AC ?1.06 FL / BPD ?? 0.68 FL / AC ?0.21 MVP ?4.3 cm HALEY ?13.3 cm FHR ?126 bpm Method ======== Transabdominal ultrasound examination, Voluson E10. View: Sufficient. Impression [id number] Follow-up obstetrical ultrasound This is a matias gestation. biometry is consistent with prior dating. The single left liver calcification is again identified and unchanged. Except where noted above, the anatomy was not reviewed in detail as this is a follow-up study and the anatomy was previously assessed. Normal fluid and movement are noted. Follow-up Follow-up as clinically indicated. Procedure Note Tiera Meier MD - 04/15/2017 Indication anomaly: gastrointestinal tract, hepatic calcification. History ======= General History Height 157 cm Height (ft) 5 ft Height (in) 2 in Previous Outcomes 3 Para 0 Abortions (A) 2 Number of fetuses: 1. Maternal Assessment Height 157 cm Height (ft) 5 ft Height (in) 2 in Physical Exam Initial weight 63 kg Initial weight (lb) 138 lb Initial BMI 25.24 kg/m? Dating ======= LMP on: 09/03/2016 GA by LMP 32 w + 0 d TARIQ by LMP : 06/10/2017 Stated Dating on: 11/12/2016 GA at stated dating date 10 w + 2 d GA by stated dating 32 w + 2 d TARIQ by stated datin06/08/2017 Stated dating by: outside ultrasound Ultrasound examination on: 04/15/2017 GA by U/S based upon: AC, BPD, Femur, HC GA by U/S 32 w + 5 d TARIQ by U/S: 06/05/2017 Assigned: Dating performed on 01/15/2017 Based on the LMP Assigned GA 32 w + 0 d Assigned TARIQ: 06/10/2017 General Evaluation Cardiac activity: Present. FHR 126 bpm. movements: visualized. Presentation: cephalic. Placenta: posterior. Amniotic fluid: Amount of AF: normal. MVP 4.3 cm. HALEY 13.3 cm. Q1 2.5 cm, Q2 4.3 cm, Q3 2.8 cm, Q4 3.8 cm. Anatomy Cranium: normal Lateral ventricles: normal Midline falx: normal Cranium: normal shape and size 4-chamber view: normal Stomach: normal Kidneys: normal Bladder: normal Liver: abnormal Liver: calcification Gender: male Wants to know gender: yes Biometry Biometry BPD 86.8 mm 98% 35w 0d Hadlock OFD 103.3 mm 84% 33w 5d Ray HC 302.2 mm 64% 32w 5d [place] AC 283.8 mm 61% 32w 3d Hadlock Femur 59.1 mm 27% 30w 5d Ray Humerus 54.3 mm 39% 31w 4d Ray EFW 1,939 g 39% Narvaez Calculated by: Hadlock ([id number]) EFW (lb) 4 lb EFW (oz) 4 oz Cephalic index 0.84 88% Nicolaides HC / AC 1.06 FL / BPD 0.68 FL / AC 0.21 MVP 4.3 cm HALEY 13.3 cm FHR 126 bpm Method ======== Transabdominal ultrasound examination, Voluson E10. View: Sufficient. Impression [id number] Follow-up obstetrical ultrasound This is a matias gestation. biometry is consistent with prior dating. The single left liver calcification is again identified and unchanged. Except where noted above, the anatomy was not reviewed in detail as this is a follow-up study and the anatomy was previously assessed. Normal fluid and movement are noted. Follow-up Follow-up as clinically indicated. Marilyn Ware IMG US ALF ORDERA BLES documented in this encounter Visit Diagnoses Not on filedocumented in this encounter Care Teams Grinder Operator External Tool Relationship Specialty Start Date End Date Dejuan Garduno ND [address] [place] [address],[address] [place] [phone] PCP - General 01/14/17 documented as of this encounter
--- OUTSIDE RECORDS SUMMARY | 2024-04-12 10:22 | XMS_ITS | Encounter Summary ---
Author Organization [facility] Address [address] [place] [address] Care Team Providers Care Cigar Head Piercer Name Role Phone Dejuan Garduno ND Primary Care Provider + Reason for Visit * Reason Onset Date Comments Appointment Related 02/03/2019 Encounter Details Date Type Department Care Team ([facility] Contact Info) Description 02/03/2019 Telephone [facility] Ob[facility] Midwifery - [address] [phone] Zach Kimball MD [address] [facility], [address] [place] [address] Appointment Related Social History Tobacco Use Types Packs/Day Years Used Date Smoking Tobacco: Never Assessed Comments Yes Sex and Gender Information Value Date Recorded Sex Assigned at Not on file Gender Identity Not on file Sexual Orientation Not on file documented as of this encounter Miscellaneous Notes * Telephone Encounter - Cate Solares - 02/03/2019 1543 EDT LVM regarding scheduling of ultrasound documented in this encounter Plan of Treatment Not on file documented as of this encounter Visit Diagnoses Not on filedocumented in this encounter Care Teams Cigar Head Piercer Relationship Specialty Start Date End Date Dejuan Garduno ND [address] [place] [address],[address] [place] [address] [phone] PCP - General 01/14/17 documented as of this encounter
--- OUTSIDE RECORDS SUMMARY | 2024-04-12 10:22 | XMS_ITS | Encounter Summary ---
Author Organization [facility] Address [address] [place] [address] Care Team Providers Care Community Director Name Role Phone Dejuan Garduno ND Primary Care Provider + Encounter Details Date Type Department Care Team ([facility] st Contact Info) Description 01/21/2017 Results Only Imaging [facility] [phone] ChristDecember, GAS FURNACE INSTALLER [address] [facility] [address] [place] [address] Social History Tobacco Use Types Packs/Day Years [...] on filedocumented in this encounter Care Teams Community Director Relationship Specialty Start Date End Date Dejuan Garduno ND [address] [place] [address] [address] [place] [address] PCP - General 01/14/17 documented as of this encounter
--- OUTSIDE RECORDS SUMMARY | 2024-04-12 10:22 | XMS_ITS | Encounter Summary ---
Author Organization [facility] Address [address] [place] [address] Care Team Providers Care Campaign Management Senior Manager Name Role Phone Dejuan Garduno ND Primary Care Provider + Encounter Details Date Type Department Care Team (Late st Contact Info) Description 11/17/2018 Results Only Imaging [facility] [phone] Marilyn Ware [address] [place] [address] Social History Tobacco Use Types Packs/Day Years Used Date Smoking Tobacco: Never Assessed Sex and Gender Information Value Date Recorded Sex Assigned at Not on file Gender Identity Not on file Sexual Orientation Not on file documented as of this encounter Plan of Treatment Not on file documented as of this encounter Procedures Procedure Name Priority Date/Time Associated Diagnosis Comments HALFWAY 1ST TRIMESTER 11/17/2018 13: 25 EST documented in this encounter Results * HALFWAY 1ST TRIMESTER (11/17/2018 13:25 EST) Anatomical Region Laterality Modality Other 11/17/2018 13:2 5 EST 11/17/2018 14:54 EST Narrative 11/17/2018 14:54 EST Indication Dating. Advanced maternal age. Prior . History ======= General History Height 157 cm Height (ft) ?5 ft Height (in) ?2 in Previous Outcomes ?5 Para ?? 1 Matias children born (T) ?1 Abortions (A) ??3 Matias living children (L) ??1 Other: Prior history of Maternal Assessment Height 157 cm Height (ft) ?5 ft Height (in) ?2 in Physical Exam Initial weight 59 kg Initial weight (lb) ?130 lb Initial BMI ?23.78 kg/m? Number of fetuses: 1. Dating ======= Method of dating: ??based on the LMP LMP on: ?08/23/2018 GA by LMP ??12 w + 2 d TARIQ by LMP : ? 05/30/2019 Ultrasound examination on: 11/17/2018 GA by U/S based upon: ??CRL GA by U/S ??12 w + 4 d TARIQ by U/S: ?05/28/2019 Assigned: ??Dating performed on 11/17/2018 Based on the LMP Assigned GA ?12 w + 2 d Assigned TARIQ: ??05/30/2019 General Evaluation Cardiac activity: Present. Placenta: Posterior. Cord vessels: normal cord insertion, 3 vessel cord. Amniotic fluid: normal. Biometry CRL ?60.6 mm 56% 12w 4d Hadlock BPD ?18.3 mm 48% 12w 6d Hadlock FHR ?158 bpm 26% Nicolaides Anatomy Cranium: ?? normal Cranium: ?? Normal shape and size Situs: normal Situs: normal situs Cord insertion: ?normal Stomach: ?? normal Kidneys: ?? normal Bladder: ?? normal Stomach: ?? normal situs Arms: ??visualized Legs: ??visualized Maternal Structures Uterus / Cervix Uterus: ?Appears normal Cervix: ?Appears normal Ovaries / Tubes / Adnexa Rt ovary: ??Visualized, normal appearance Rt ovary D1 ?3.4 cm Rt ovary D2 ?1.8 cm Rt ovary D3 ?2.1 cm Rt ovary mean ??2.5 cm Rt ovary vol ?? 6.9 cm cubed Lt ovary: ??Visualized, normal appearance Lt ovary D1 ?2.3 cm Lt ovary D2 ?2.6 cm Lt ovary D3 ?1.2 cm Lt ovary mean ??2.0 cm Lt ovary vol ?? 3.6 cm cubed Method ======== Transabdominal ultrasound examination, Voluson E10. View: Sufficient. Impression [id number] First trimester obstetrical US, transabdominal This is a matias gestation. CRL is consistent with menstrual dating. Normal first trimester anatomy as noted above including cardiac/gastric situs and 12 long bones with movement; however, first trimester sonography is limited in its ability to detect anomalies. Follow-up Follow-up as clinically indicated. DATE OF SERVICE: 11/17/2018 Procedure Note Zach Kimball MD, MD - 11/17/2018 Indication Dating. Advanced maternal age. Prior . History ======= General History Height 157 cm Height (ft) 5 ft Height (in) 2 in Previous Outcomes 5 Para 1 Matias children born (T) 1 Abortions (A) 3 Matias living children (L) 1 Other: Prior history of Maternal Assessment Height 157 cm Height (ft) 5 ft Height (in) 2 in Physical Exam Initial weight 59 kg Initial weight (lb) 130 lb Initial BMI 23.78 kg/m? Number of fetuses: 1. Dating ======= Method of dating: based on the LMP LMP on: 08/23/2018 GA by LMP 12 w + 2 d TARIQ by LMP : 05/30/2019 Ultrasound examination on: 11/17/2018 GA by U/S based upon: CRL GA by U/S 12 w + 4 d TARIQ by U/S: 05/28/2019 Assigned: Dating performed on 11/17/2018 Based on the LMP Assigned GA 12 w + 2 d Assigned TARIQ: 05/30/2019 General Evaluation Cardiac activity: Present. Placenta: Posterior. Cord vessels: normal cord insertion, 3 vessel cord. Amniotic fluid: normal. Biometry CRL 60.6 mm 56% 12w 4d Hadlock BPD 18.3 mm 48% 12w 6d Hadlock FHR 158 bpm 26% Nicolaides Anatomy Cranium: normal Cranium: Normal shape and size Situs: normal Situs: normal situs Cord insertion: normal Stomach: normal Kidneys: normal Bladder: normal Stomach: normal situs Arms: visualized Legs: visualized Maternal Structures Uterus / Cervix Uterus: Appears normal Cervix: Appears normal Ovaries / Tubes / Adnexa Rt ovary: Visualized, normal appearance Rt ovary D1 3.4 cm Rt ovary D2 1.8 cm Rt ovary D3 2.1 cm Rt ovary mean 2.5 cm Rt ovary vol 6.9 cm cubed Lt ovary: Visualized, normal appearance Lt ovary D1 2.3 cm Lt ovary D2 2.6 cm Lt ovary D3 1.2 cm Lt ovary mean 2.0 cm Lt ovary vol 3.6 cm cubed Method ======== Transabdominal ultrasound examination, Voluson E10. View: Sufficient. Impression [id number] First trimester obstetrical US, transabdominal This is a matias gestation. CRL is consistent with menstrual dating. Normal first trimester anatomy as noted above including cardiac/gastric situs and 12 long bones with movement; however, first trimester sonography is limited in its ability to detect anomalies. Follow-up Follow-up as clinically indicated. DATE OF SERVICE: 11/17/2018 Marilyn Ware IMG US HALFWAY ORDERA BLES documented in this encounter Visit Diagnoses Not on filedocumented in this encounter Care Teams Campaign Management Senior Manager Relationship Specialty Start Date End Date Archdeacon, Dejuan T, ND [address] [place] [address],[address] [place] [phone] PCP - General 01/14/17 documented as of this encounter
--- OUTSIDE RECORDS SUMMARY | 2024-04-12 10:22 | XMS_ITS | Data Portability ---
Author Organization MD - [facility], Historical Import Interface Address [address] [place] [address] Assessment Encounter Date Assessment Date Assessment LastModified by Organization Details LastModified Time 08/11/2023 08/11/2023 08/11/23 OD APRO, FMX, JARET w/Dr Elizabeth (self pay) NHV: 6M APRO, JARET, TERMITE TECHNICIAN Completed Procedures D1110 - Prophylaxis - adult D0120 - Periodic oral evaluation - established patient D0210 - Intraoral - comprehensive series of radiographic images D0602 - Caries risk assessment and documentation, with a finding of moderate risk CC: No tooth concerns HHX: Reviewed, no changes. No CI to TX. BP: 112/69?? P: 65?? EOE/IOE: No s/s of hard or soft tissue pathology. Exam: Pt is 37yo, presents for APRO. Overdue, last APRO in 02/2022. Took FMX - reviewed by Dr Elizabeth. JARET by Dr Elizabeth. No caries noted. No tx indicated.?? Hx of SDF to #14-L towards M - 02/2022 - looks good today. Caries Risk: Mod POH: Brushin/day Flossing: Not often. Using ACT rinse Plaque: Lt Calculus: LT+ generalized, MOD max/clay ant?? Stain: Sl Bleeding: Mod generalzied Gingival tissues: [place] and pap redness OHI: Recommended brushing 2x/daily, flossing 1x/daily, using NaF rinse daily. Explained plaque, gingivitis, tartar, decay and perio. Perio: Stage I, localized, Grade A - TERMITE TECHNICIAN from 02/2022. Generalized 4mm pocketing, Recession: 1-2mm, localized. Discussed with pt- Recommended thorough OH, daily flossing to help improve and maintain gingival condition. New TERMITE TECHNICIAN at [facility] Txt: Scaled/deplaqued all 4 quads with HI, USS. Polished, flossed. (Epizyme, Salvador air purifier). Due to increased calculus build up today + mod bleeding recommended luke warm SWR for the next several days to help bring down inflammation. Personal: 2 sons: 4 and 6yo. Referral: None. , 2:59 PM. I attest that the treatment rendered today is completed and treatment met the standard of care. , 2:59 PM. Billing Provider: Desmond Gaona DDS [id number] Not available 09/15/2023 13:28:27 Plan of Treatment Reminders Order Date Submit Date Provider Last Modified By Organization Details Last Modified Time Details Appointments None record ed. Lab None record ed. Referral None record ed. Procedures None record ed. Surgeries None record ed. Imaging None record ed. Medication Orders None record ed. Patient TargetsNo targets recorded. Patient InstructionsNo instructions recorded. Reason for Referral None Reported. Problems Name Status Onset Date Resolution Date Notes Provider Name and Address Organization Details Recorded Time Asthma Active 10/25/19 16 Asthma; Entered By: Marilyn Maddox Signed By: Nancy Harmon DMD Not Available [facility] 10/25/2022 13:58:31 Problem Notes None recorded. Medical Equipment None Reported. Allergies Allergen ID Allergen Name Allergen Category Reaction Reaction Severity Criticality Documentation Date Start Date Code Code System Note Provider Name and Address Organization Details Recorded Time 46812 No Allergy Informati on Available Not available Not available Not available Not available 10/24/2022 Not Available [facility] 3 04:36:29 Vitals Date Recorded Heart rate Systolic blood pressure Diastolic blood pressure Provider Name and Address Organization Details Last Updated DateTime 08/11/2023 65 /min 112 mm[Hg] 69 mm[Hg] Not Available [facility] 08/11/2023 14:45:51 Social History None recorded. Functional Status None recorded. Mental Status None recorded. Family History Nothing Reported. Medical History No medical history recorded. Gynecological HistoryNo gynecological history recorded. Obstetrics History GPAL:G 0 P 0 0 0 0 Past Encounters Encounter ID Performer Location Encounter Start Date Encounter Closed Date Diagnosis/Indication Diagnosis SNOMED-CT Code [id number] [facility] [address] [place] [address] 08/11/2023 11:04:24 09/15/2023 13:28:32 Health Concerns Section Related Observation LastModified by Organization Detai ls LastModified Time None Recorded Concern Status LastModified by Organization Details LastModified Time None Recorded Advance Directives Directive None Recorded Payers Encounter Date Sequence Insurance Name Policy Number Policy Felipe Covered Member ID Felipe Member ID Guarantor Name 08/11/2023 [employer] (MOVED TO HOLD) Diana Llamas [id number] Diana Llamas 08/11/2023 *SELF PAY* Diana Llamas OBGyn Episode No OBEpisode recorded.
--- OUTSIDE RECORDS SUMMARY | 2024-04-12 10:22 | XMS_ITS | Encounter Summary ---
Author Organization [facility] Address [address] [place] [address] Care Team Providers Care Plant Technical Specialist Name Role Phone Dejuan Garduno ND Primary Care Provider + Encounter Details Date Type Department Care Team (Late st Contact Info) Description 01/15/2017 Phlebotomy Only [facility] - [address] [address] Physician Industrial, Outpatient Fetus with viral damage via mother with problem, not applicable or unspecified fetus (Primary Dx) Social History Tobacco Use Types Packs/Day Years Used Date Smoking Tobacco: Never Assessed Comments Yes Sex and Gender Information Value Date Recorded Sex Assigned at Not on file Gender Identity Not on file Sexual Orientation Not on file documented as of this encounter Plan of Treatment Not on file documented as of this encounter Procedures Procedure Name Priority Date/Time Associated Diagnosis Comments CYSTIC FIBROSIS MUTATION ANALYSIS, 106 PANEL Routine 01/15/2017 12:52 EDT Fetus with viral damage via mother with problem, not applicable or unspecified fetus PARVOVIRUS B19 AB, IGG, IGM, S Routine 01/15/2017 12:52 EDT Fetus with viral damage via mother with problem, not applicable or unspecified fetus documented in this encounter Results * CYSTIC FIBROSIS MUTATION ANALYSIS, 106 PANEL (01/15/2017 12:52 EDT) Result Summary NEGATIVE 01/21/2017 7:46 EDT [facility] Result (Note) 01/21/2017 7:46 EDT [facility] Comment:None of the listed m utations were detected. Interpretation (Note) 01/21/2017 7:46 EDT [facility] Comment: Having excluded the listed [...] 10/07) Eastern ?127 ? (77%, 10/12) Ashkenazi Lutheran ? (97%, 10/07) [place]ar[place]uan [place] ? (91%, 10/07) ?338 ? (81%, ) South African ? 251 ? (82%, ) South African* ? 194 ? (54%, ) *does not apply to individuals of Polish ancestry . These calculations are based on [...] not detected by this assay. Contact the [facility] at for further discussion regarding this option. . A genetic consultation may be of benefit. . ADDITIONAL INFORMATION An online research opportunity called Local [employer] Launch (Zazoo), a project of [employer], is available for the recipient of this genetic test. This patient registry collects de-identified genetic and health information to advance the knowledge of genetic variants. [facility] is a collaborator of [employer]. This may not be applicable for all [...] allogenic donors will interfere with testing. Call [facility] for instructions for testing patients who have received a bone marrow transplant. . Multiple in-silico evaluation tools may have been used to assist in the interpretation of these results. Of note, the sensitivity and specificity of these tools for the determination of pathogenicity is currently unvalidated. . This test was developed and its performance characteristics determined by [facility] in a manner consistent with CLIA requirements. This test has not been cleared or approved by the U.S. Food and Drug Administration. Specimen WB Whole Blood 01/21/2017 7:46 [facility] Method (Note) 01/21/2017 7:46 [facility] Comment: The multiplex PCR based assay utilizing the [employer] [place] Array platform was used to detect 106 mutations, including the 23 mutations specified in the [place] [employer] (ACMG) standards for population based carrier screening. The mutations are as follows: bcnzoN660, wqyhzG655, G542X, G85E, R117H, H2887U (TGG>TGA), 621+1G>T, 711+1G>T, S6458Q (C>A), M2632D (C>G), R334W, R347P, A455E, 1717-1G>A, R553X, R560T, G551D, 1898+1G>A, 2184delA, 2789+5G>A, 3120+1G>A, E4314B, 3659delC, 3849+10kbC>T, the deletion of exons 2-3, 296+2T>A, E60X, R75X, 394_395delTT, 405+1G>A, 406-1G>A, E92X, 444delA, 457TAT>G, R117C, Y122X, 574delA, 663delT, G178R, 711+5G>A, 712-1G>T, H199Y, P205S, L206W, 613oxb93, 935delA, 936delTA, nlfrzL680, 1078delT, G330X, T338I, R347H, R352Q, Q359K, T360K, 1288insTA, S466X (C>A), S466X (C>G), G480C, Q493X, 1677delTA, C524X, S549N, S549R (T>G), Q552X, A559T, 1811+1.6kbA>G, 1812-1G>A, 1898+1G>T, 1898+1G>C, 1898+5G>T, P574H, 6246qal06, 2043delG, 7662woh0>A, 6668siq89goo1, 2108delA, 2143delT, 2183_2184delAAinsG, 2184insA, R709X, K710X, 2307insA, R764X, Q890X, 2869insG, 3171delC, 8668llg6, B0283J, P8382N (TGG>TAG), S0492O (C>G), O3483L (C>A), J8248T, N0489K, J5037X, A9058J, 5502tpl3, N2304I, J2654O (TGG>TAG), 3791delC, Z3736S, 3876delA, L9760B, T2822N, 3905insT, and 4016dupT mutations are detected. Poly T determination and confirmatory testing of homozygous results are performed as reflex tests when appropriate. Released By Yovani Brannon Jr., Ph.D. 01/21/2017 7:46 EDT [facility] Comment: Performed or Referred by: [facility], [facility] [place] [address], Lab Dir: Dallas Viramontes II, M.D., Ph.D. Blood specimen (specimen) BLOOD SPECIMEN / Unknown 01/15/2017 12:52 EDT 01/15/2017 13:24 EDT Zach Kimball MD CHEMISTRY & BLOO D GAS ORDERABLES [facility] [address] [place] [address] * PARVOVIRUS ANTIBODY (01/15/2017 12:52 EDT) Parvovirus B19 Ab, IgG, S 0.21 <0.90 index 01/19/2017 8:06 EDT [facility] Comment: (Note) Negative Parvovirus B19 Ab, IgM, S 0.11 <0.90 index 01/19/2017 8:06 EDT [facility] Comment: (Note) Negative Parvovirus Interpretation (Note) 01/19/2017 8:06 EDT [facility] Comment: No antibody detected. Performed by: [facility]: [address], [place] [address], Lab Dir: Dallas Viramontes II, M.D., Ph.D. Blood specimen (specimen) BLOOD SPECIMEN / Unknown 01/15/2017 12:52 EDT 01/15/2017 13:24 EDT Zach Kimball MD IMMUNOLOGY AND S EROLOGY ORDERABLES [facility] [address] [place] [address] documented in this encounter Visit Diagnoses Diagnosis Fetus with viral damage via mother with problem, not applicable or unspecified fetus- Primary documented in this encounter Care Teams Plant Technical Specialist Relationship Specialty Start Date End Date Dejuan Garduno ND [address] [place] [address],[address] [phone] PCP - General 01/14/17 documented as of this encounter
--- OUTSIDE RECORDS SUMMARY | 2024-04-12 10:22 | XMS_ITS | Encounter Summary ---
Author Organization [facility] Address [address] [place] [address] Care Team Providers Care Copying Machine Mechanic Name Role Phone Dejuan Garduno ND Primary Care Provider + Encounter Details Date Type Department Care Team (Late st Contact Info) Description 01/17/2019 Results Only Imaging [facility] [phone] Marilyn Ware [address] [place] [address] Social History Tobacco Use Types Packs/Day Years Used Date Smoking Tobacco: Never Assessed Sex and Gender Information Value Date Recorded Sex Assigned at Not on file Gender Identity Not on file Sexual Orientation Not on file documented as of this encounter Plan of Treatment Not on file documented as of this encounter Procedures Procedure Name Priority Date/Time Associated Diagnosis Comments [facility] DETAILED 02/02/2019 14:10 EDT documented in this encounter Results * [facility] DETAILED (02/02/2019 14:10 EDT) Anatomical Region Laterality Modality Other 02/02/2019 14:1 0 EDT 02/02/2019 15:31 EDT Narrative 02/02/2019 15:31 [place]T [place] [address] due to finding: bilateral urinary tract dilitation. Advanced maternal age. Prior . History ======= [...] kg/m? Number of fetuses: 1. Dating ======= Ultrasound examination on: 02/02/2019 GA by U/S based upon: ??AC, BPD, Femur, HC GA by U/S ??22 w + 4 d TARIQ by U/S: ?06/04/2019 Assigned: ??Dating performed on 11/17/2018 Based on the LMP Assigned GA ?23 w + 2 d Assigned TARIQ: ??05/30/2019 General Evaluation Cardiac activity: Present. FHR 140 bpm. movements: visualized. Presentation: maribel breech, spine maternal right. Placenta: posterior, fundal. Umbilical cord: Cord vessels: 3 vessel cord. Cord insertion: placental insertion: normal. Amniotic fluid: Amount of AF: normal. Biometry Biometry BPD ?53.2 mm 10% 22w 1d Hadlock OFD ?73.0 mm 77% 24w 2d Ray HC 203.0 mm ?25% 22w 3d [place] AC 183.6 mm ?38% 23w 1d Hadlock Femur ??39.0 mm 37% 22w 5d Ray Cerebellum tr ??25.9 mm 82% 24w 3d Watson CM 5.7 mm ??47% Nicolaides Nuchal fold ?4.79 mm Humerus ?38.3 mm 46% 23w 4d Ray EFW ?537 g Calculated by: Hadlock ([id number]-FL) EFW (lb) ?? 1 lb EFW (oz) ?? 3 oz Cephalic index 0.73 ?5% Nicolaides HC / AC ?1.11 FL / BPD ?? 0.73 FL / AC ?0.21 FHR ?140 bpm Head / Face / Neck Anesthesiologists' Assistant 5.2 mm Nasal bone 6.4 mm Urinary Tract Rt Renal pelvis ap 5.5 mm Lt Renal pelvis ap 5.5 mm Extremities / Bony Struc Radius 33.1 mm 45% Chitty Ulna ?? 37.5 mm 77% 24w 6d Ray Tibia ??36.4 mm 62% 23w 5d Ray Fibula 36.9 mm 62% 24w 0d Ray Foot ?? 43.6 mm 68% Chitty Anatomy Cranium: ?? normal Lateral ventricles: [...] normal IVC: ?? normal 3-vessel view: normal 8-djwssc-inssarr view: normal Rt lung: ?? normal Lt lung: ?? normal Diaphragm: normal Cord insertion: ?normal Stomach: ?? normal Bladder: ?? normal Genitals: ??normal Abdom. wall: ?? normal Rt kidney: abnormal Rt kidney: dilated renal pelvis Lt kidney: abnormal Lt kidney: dilated renal pelvis Liver: normal Cervical spine: ?normal Thoracic spine: ?normal Lumbar spine: ??normal Sacral spine: ??normal Skeleton: ??normal Arms: ??normal Legs: ??normal Rt arm: ?normal Lt arm: ?normal Rt hand: ?? normal Lt hand: ?? normal Rt leg: ?normal Lt leg: ?normal Rt foot: ?? normal Lt foot: ?? normal Gender: ?male Wants to know gender: ??yes Aneuploidy Screening Age ?35 yrs Echogenic focus: ?? no Include: ?? intracardiac echogenic focus Include: ?? ventriculomegaly Include: ?? nuchal fold Include: ?? echogenic bowel Include: ?? mild hydronephrosis Ventriculomegaly: ??no Nuchal fold: ?? normal Echogenic bowel: ?? no Pyelectasis: ?? yes Short femur: ?? no Include: ?? short humerus Include: ?? nasal bone Short humerus: no Nasal bone: ?present Display risk: ??Risk at time of screening Background risk at time of screening ?? 335 Background risk at term ?378 Adjusted risk at time of screening 239 Adjusted risk at term ??269 Other: She has had normal results on a cell-free DNA in maternal serum test. Maternal Structures Uterus / Cervix Uterus: ?Appears normal Cervix: ?Appears normal Ovaries / Tubes / Adnexa Rt ovary: ??Visualized, normal appearance Lt ovary: ??Visualized, normal appearance Method ======== Transabdominal ultrasound examination, Voluson E10. View: Sufficient. Impression [place] study [place] a 39432 but was [place] to a [address] [place] to [place]. [id number] Obstetrical ultrasound with and maternal evaluation, including detailed anatomic examination This is a matias gestation. Biometry is consistent with menstrual dating. Bilateral urinary tract dilation was noted. Otherwise, the anatomy appears normal as noted [...] the umbilical cord and placenta for masses. LEFT KIDNEY AP renal pelvis diameter: 5.5 mm Central calyceal dilation: absent Peripheral calyceal dilation: absent Parenchymal thickness: normal Parenchymal appearance (echogenicity, cysts): normal Ureter: normal RIGHT KIDNEY AP renal pelvis diameter: 5.5 mm Central calyceal dilation: absent Peripheral calyceal dilation: absent Parenchymal thickness: normal Parenchymal appearance (echogenicity, cysts): normal Ureter: normal Bladder: normal Unexplained oligohydramnios: No Urinary Tract Dilation (UTD) risk stratification: UTD A1 (low risk) The amniotic fluid volume is normal. There is trunk and extremity movement noted. Please see separate consultation letter. Follow-up Recommend follow-up at 32 weeks'. Comment ========= This follow-up has been scheduled. DATE OF SERVICE: 02/02/2019 Procedure Note Zach Kimball MD, - 02/02/2019 [place] [address] due to finding: bilateral urinary tract dilitation. Advanced maternal age. Prior . History ======= [...] kg/m? Number of fetuses: 1. Dating ======= Ultrasound examination on: 02/02/2019 GA by U/S based upon: AC, BPD, Femur, HC GA by U/S 22 w + 4 d TARIQ by U/S: 06/04/2019 Assigned: Dating performed on 11/17/2018 Based on the LMP Assigned GA 23 w + 2 d Assigned TARIQ: 05/30/2019 General Evaluation Cardiac activity: Present. FHR 140 bpm. movements: visualized. Presentation: maribel breech, spine maternal right. Placenta: posterior, fundal. Umbilical cord: Cord vessels: 3 vessel cord. Cord insertion: placental insertion: normal. Amniotic fluid: Amount of AF: normal. Biometry Biometry BPD 53.2 mm 10% 22w 1d Hadlock OFD 73.0 mm 77% 24w 2d Ray HC 203.0 mm 25% 22w 3d [place] AC 183.6 mm 38% 23w 1d Hadlock Femur 39.0 mm 37% 22w 5d Ray Cerebellum tr 25.9 mm 82% 24w 3d Watson CM 5.7 mm 47% Nicolaides Nuchal fold 4.79 mm Humerus 38.3 mm 46% 23w 4d Ray EFW 537 g Calculated by: Hadlock (ESZ-DR-[id number]-FL) EFW (lb) 1 lb EFW (oz) 3 oz Cephalic index 0.73 5% Nicolaides HC / AC 1.11 FL / BPD 0.73 FL / AC 0.21 FHR 140 bpm Head / Face / Neck Anesthesiologists' Assistant 5.2 mm Nasal bone 6.4 mm Urinary Tract Rt Renal pelvis ap 5.5 mm Lt Renal pelvis ap 5.5 mm Extremities / Bony Struc Radius 33.1 mm 45% Chitty Ulna 37.5 mm 77% 24w 6d Ray Tibia 36.4 mm 62% 23w 5d Ray Fibula 36.9 mm 62% 24w 0d Ray Foot 43.6 mm 68% Chitty Anatomy Cranium: normal Lateral ventricles: normal Choroid plexus: normal Midline falx: normal Cavum septi pellucidi: normal Cerebellum: normal Cisterna magna: normal Parenchyma: normal Cerebellar lobes: normal Vermis: normal Neck: normal Nuchal fold: normal Lips: normal Profile: normal Nose: normal Maxilla: normal Mandible: normal 4-chamber view: normal RVOT: normal LVOT: normal Situs: normal Aortic arch: normal SVC: normal IVC: normal 3-vessel view: normal [id number] view: normal Rt lung: normal Lt lung: normal Diaphragm: normal Cord insertion: normal Stomach: normal Bladder: normal Genitals: normal Abdom. wall: normal Rt kidney: abnormal Rt kidney: dilated renal pelvis Lt kidney: abnormal Lt kidney: dilated renal pelvis Liver: normal Cervical spine: normal Thoracic spine: normal Lumbar spine: normal Sacral spine: normal Skeleton: normal Arms: normal Legs: normal Rt arm: normal Lt arm: normal Rt hand: normal Lt hand: normal Rt leg: normal Lt leg: normal Rt foot: normal Lt foot: normal Gender: male Wants to know gender: yes Aneuploidy Screening Age 33 yrs Echogenic focus: no Include: intracardiac echogenic focus Include: ventriculomegaly Include: nuchal fold Include: echogenic bowel Include: mild hydronephrosis Ventriculomegaly: no Nuchal fold: normal Echogenic bowel: no Pyelectasis: yes Short femur: no Include: short humerus Include: nasal bone Short humerus: no Nasal bone: present Display risk: Risk at time of screening Background risk at time of screening 335 Background risk at term 378 Adjusted risk at time of screening 239 Adjusted risk at term 269 Other: She has had normal results on a cell-free DNA in maternal serum test. Maternal Structures Uterus / Cervix Uterus: Appears normal Cervix: Appears normal Ovaries / Tubes / Adnexa Rt ovary: Visualized, normal appearance Lt ovary: Visualized, normal appearance Method ======== Transabdominal ultrasound examination, [place]on E10. View: Sufficient. Impression [place] 75987 but was [place] a [address] [place] to [place]. [id number] Obstetrical ultrasound with and maternal evaluation, including detailed anatomic examination This is a matias gestation. Biometry is consistent with menstrual dating. Bilateral urinary tract dilation was noted. Otherwise, the anatomy appears normal as noted [...] the umbilical cord and placenta for masses. LEFT KIDNEY AP renal pelvis diameter: 5.5 mm Central calyceal dilation: absent Peripheral calyceal dilation: absent Parenchymal thickness: normal Parenchymal appearance (echogenicity, cysts): normal Ureter: normal RIGHT KIDNEY AP renal pelvis diameter: 5.5 mm Central calyceal dilation: absent Peripheral calyceal dilation: absent Parenchymal thickness: normal Parenchymal appearance (echogenicity, cysts): normal Ureter: normal Bladder: normal Unexplained oligohydramnios: No Urinary Tract Dilation (UTD) risk stratification: UTD A1 (low risk) The amniotic fluid volume is normal. There is trunk and extremity movement noted. Please see separate consultation letter. Follow-up Recommend follow-up at 32 weeks'. Comment ========= This follow-up has been scheduled. DATE OF SERVICE: 02/02/2019 Marilyn GUTIERREZ [facility] ORDERA BLES documented in this encounter Visit Diagnoses Not on filedocumented in this encounter Care Teams Copying Machine Mechanic Relationship Specialty Start Date End Date Dejuan Garduno ND [address] [place] [address],[address] [place] [phone] PCP - General 01/14/17 documented as of this encounter
--- OUTSIDE RECORDS SUMMARY | 2024-04-12 10:22 | XMS_ITS | Encounter Summary ---
Author Organization [facility] Address [address] [place] [address] Care Team Providers Care Veterinarian Name Role Phone Dejuan Garduno ND Primary Care Provider + Reason for Referral * LENS BLOCKER (Routine) - New Request Specialty Diagnoses / Procedures Referred By Jacey argueta Referred To Contact Diagnoses affected by genitourinary abnormality of fetus, single or unspecified fetus Advanced maternal age in multigravida, second trimester Procedures SNF FOLLOW-UP Zach Kimball MD [address] [place] [phone] Referral ID Status Reason Start Date Expiration Date V isits Requested Visits Authorized [id number] New Request 02/02/2019 1 1 Encounter Details Date Type Department Care Team (Late st Contact Info) Description 02/02/2019 13:00 EDT Initial consult [facility] - [address] [phone] Zach Kimball MD [address] [place] [phone] affected by genitourinary abnormality of fetus, single or unspecified fetus (Primary Dx); Advanced maternal age in multigravida, second trimester Social History Tobacco Use Types Packs/Day Years Used Date Smoking Tobacco: Never Assessed Comments Yes Sex and Gender Information Value Date Recorded Sex Assigned at Not on file Gender Identity Not on file Sexual Orientation Not on file documented as of this encounter Progress Notes * Zach Kimball MD, MD - 02/02/2019 1300 EDT February 02, 2019 Marilyn CoronadoDelaney, CPM, LM [address] [place] [phone] Re: Diana Llamas Dear Ms. Ware: I had the pleasure of meeting with Ms. Llamas and her partner today. As you know, she is a 33-year-old woman, 5 para 1031, presently at 23w2d. She was sent for an obstetrical ultrasound due tomaternal age with the request that we consult on abnormal findings. The couple denies a family history of aneuploidy, genetic diseases/syndromes, defects, multiple miscarriage, stillbirth or developmental delay/mental retardation. I had seen the couple previously about 2 years ago when their ultrasound had a livercalcification. She had an obstetrical ultrasound today, and the report of that study is enclosed. The findings were essentially normal except for bilateral urinary tract dilation, consisting of dilation of the renal pelves up to 5.5 mm on the right and 5.5 mm on the left (at this gestational age, normal is < 4.0 mm). Neither ureter was dilated. The bladder appeared normal. There was central but not peripheral, calyceal dilation. The renal parenchyma appearance and thickness were normal. A grading system of urinary tract dilation (UTD) has been proposed by a multidisciplinary panel in an attempt to standardize terminology and align grading with pre-existing grading systems, both to help with prognosis and with classification for research studies.1 In their analysis of the literature, they found that while cut-offs used for normal were inconsistent, themost common practice was to divide into 2 groups, with one group < 28 weeks? and theother ? 28 weeks? . Normal was defined as < 4.0 mm at < 28 weeks? and < 7.0 at ? 28 weeks???. They noted that resolution occurred in about 80% of cases when the dilation was between 4 and 7-8 mm during the second trimester but less than 15% with the dilation was > 9 mm.2-4 Consequently, follow-up ultrasound during the third trimester to evaluate interval changes was recommended. They also noted that prognosis is also influenced by other factors such as parenchyma and calyceal dilation. The following ultrasound parameters are included in their UT dilation classification system: Anterior-Posterior renal pelvic diameter (APRPD), Calyceal dilation, Parenchymal thickness, Parenchymal appearance, Ureter and bladder. Using these parameters, they developed a UT dilation risk stratification (no risk versus low versus increased risk). Using this table, this fetus falls in the increased low risk group. In keeping with these published guidelines, I would simply recommend a follow-up scan 32 weeks???. If there were an urologic anomaly, she would be at a slight risk of other anomalies in the VACTERL association. I have looked at the fetus, and while not all of the VACTERL anomalies are detectable prenatally, I do not see any evidence of the ones that could be identified at this time. In some series, a dilated renal pelvis has been associated with an increased risk for aneuploidy, particularly Down syndrome.5-8 Nonetheless, it is most commonly seen as a normal variant and appears more commonly in male fetuses (this fetus is male). While some studies have found this to be an unimportant as an isolated finding9,10 or when considered in a panel of possible Down syndrome markers,11 two studies have found isolated pyelectasis to be associated with aneuploidy.7,12 In his review ofisolated ultrasound markers for Down syndrome, Zach Nicholas cites the findings of Nicolaides??? group that pyelectasis is associated with a relative risk of 1.6, and notes that his group???s [Yu?? ?s] experience had been similar.13 There were no other trisomy 21 markers in this fetus. She had normal cell-free DNA in maternal serum testing, so her risk for trisomy 21 is extremely low evenwith the pyelectasis. At this point, I would not otherwise alter her care beyond her follow- up scan. Thank you for referring Ms. Llamas and allowing me to participate in her care. I spent my entire 15-minute session counseling her on the management of urinary tract dilation. She indicated that she understood the issues that we discussed and that her questions had been answered. Should you have any questions or concerns, please feel free to contact me. Best regards, Zach Kimball MD Director, Diagnostic Center Professor of Obstetrics, Gynecology & Reproductive Sciences [facility], Dept. of OBGYN Division of Maternal- Medicine [email or web address] 1. Gillian BERNABE, Baldev RADER, Kolton Bravo, et al. Multidisciplinary consensus on the classification of and urinary tract dilation (UTD classification system). J Pediatr Urol 2014;10:982-98. 2. Delgado S, Al-Habib A, Roosevelt S, Alexandria Bravo. Natural history of hydronephrosis diagnosed on mid-trimester ultrasound. Ultrasound Obstet Gynecol 2001;17:191-6. 3. Rafaela G, Christina L, Merle E, David JF, Demar Y. Outcome of urological abnormalities prenatally diagnosed by ultrasound. Diagn Ther 1996;11:181-90. 4. Keturah COYLE, Shahram M, José Miguel E, et al. Evaluation and follow-up of hydronephrosis. J Ultrasound Med 2001;20:1065-9. 5. Karina MARK, Chano J, Rhiannon JA, Sylvia BL, Eder WATTS, Jr. pyelectasis: a possible association with Down syndrome. Obstet Gynecol 1990;76:58-60. 6. Tracy JE, Marta JM, Tip GUIDO. pyelectasis and Down syndrome: is genetic amniocentesiswarranted? Obstet Gynecol 1992;79:770-2. 7. Wihayley EA, Thangajamilu M, Parilisandro BV, Tamura RK, Sabjamel RE. A prospective study of the association between isolated pyelectasis and chromosomal abnormality. Obstet Gynecol 1996;88:379-82. 8. John RD, Vera S, Emerson LINARES. pyelectasis: comparison of renal pathology withunilateral and bilateral pyelectasis. Prenat Diagn 1997;17:451-5. 9. Jigar LOMAS, Mohit MACHADO. Adjusting the risk for trisomy 21 on the basis of second-trimester ultrasonography. Am J Obstet Gynecol 1995;172:837-44. 10. Rebeca THOMPSON, Robina SOLER, Lissa M, Shahbaz F, Mindi CASEY. mild hydronephrosis and chromosomal defects: relation to maternal age and gestation. Diagn Ther 1995;10:349-55. 11. Siena O, Jaime MJ, Pily JA, Awais RO. Subtle ultrasonographic anomalies: do they improve the Down syndrome detection rate? Am J Obstet Gynecol 1998;178:441-5. 12. Melissa PM, Ryder LS, Janice M, Jem S. The association of aneuploidy and mild pyelectasis in an unselected population: the results of a multicenter study. Ultrasound Obstet Ovudjau8094;17:197-202. 13. Yu DA, Scott VL, El-Lily A, Gaurang S, Gopal F, Lisa DA. Isolated sonographic markers for detection of Down syndrome in the second trimester of . J Ultrasound Med 2001;20:1053-63. documented in this encounter Plan of Treatment Not on file documented as of this encounter Procedures Procedure Name Priority Date/Time Associated Diagnosis Comments ORDERS - SCANNED 04/11/2019 1:13 EDT SNF FOLLOW-UP Routine 04/05/2019 11:19 EDT affected by genitourinary abnormality of fetus, single or unspecified fetus Advanced maternal age in multigravida, second trimester documented in this encounter Results * ORDERS - SCANNED (04/11/2019 1:13 EDT) 04/11/2019 1:13 EDT Scan 2 Manager Van ADMISSION ORDERABLE S * SNF FOLLOW-UP (04/05/2019 11:19 EDT) Anatomical Region Laterality Modality Other 04/05/2019 11:1 9 EDT 04/05/2019 12:05 EDT Narrative 04/05/2019 12:05 EDT Indication anomaly: urinary tract dilation, bilateral. Advanced maternal age. Prior . History ======= General History Height 157 cm Height (ft) ?5 ft Height (in) ?2 in Previous Outcomes ?5 Para ?? 1 Matias children born (T) ?1 Abortions (A) ??3 Matias living children (L) ??1 Other: Prior history of Number of fetuses: 1. Maternal Assessment Height 157 cm Height (ft) ?5 ft Height (in) ?2 in Physical Exam Initial weight 59 kg Initial weight (lb) ?130 lb Initial BMI ?23.78 kg/m? Dating ======= Ultrasound examination on: 04/05/2019 GA by U/S based upon: ??AC, BPD, Femur, HC GA by U/S ??31 w + 4 d TARIQ by U/S: ?06/03/2019 Assigned: ??Dating performed on 11/17/2018 Based on the LMP Assigned GA ?32 w + 1 d Assigned TARIQ: ??05/30/2019 General Evaluation Cardiac activity: Present. FHR 136 bpm. movements: visualized. Presentation: cephalic, spine maternal right. Placenta: posterior. Umbilical cord: 3 vessel cord. Amniotic fluid: Amount of AF: normal. MVP 3.7 cm. HALEY 10.3 cm. Q1 2.1 cm, Q2 3.7 cm, Q3 3.1 cm, Q4 1.4 cm. Anatomy Cranium: ?? normal Lateral ventricles: ?normal Midline falx: ??normal Cranium: ?? normal shape and size 4-chamber view: ?normal Stomach: ?? normal Kidneys: ?? normal Bladder: ?? normal Gender: ?male Wants to know gender: ??yes Biometry Biometry BPD ?79.2 mm 31% 31w 6d Hadlock OFD ?95.6 mm 18% 30w 6d Ray HC 278.4 mm ?9% 29w 5d [place] AC 284.9 mm ?60% 32w 4d Hadlock Femur ??62.0 mm 62% 32w 0d Ray Humerus ?56.0 mm 64% 32w 4d Ray EFW ?1,907 g 31% Narvaez Calculated by: Hadlock ([id number]) EFW (lb) ?? 4 lb EFW (oz) ?? 3 oz Cephalic index 0.83 ?80% Nicolaides HC / AC ?0.98 FL / BPD ?? 0.78 FL / AC ?0.22 MVP ?3.7 cm HALEY ?10.3 cm FHR ?136 bpm Head / Face / Neck Rn Burn 4.5 mm Method ======== Transabdominal ultrasound examination, Voluson E10. View: Limited by advanced gestational age. Impression [id number] Follow-up obstetrical ultrasound This is a matias gestation. biometry is consistent with prior dating. The bilateral urinary tract dilitation has resolved. Except where noted above, the anatomy was not reviewed in detail as this is a follow-up study and the anatomy was previously assessed. Normal fluid and movement are noted. Follow-up Follow-up as clinically indicated. DATE OF SERVICE: 04/05/2019 Procedure Note Beth Cloud MD, - 04/05/2019 Indication anomaly: urinary tract dilation, bilateral. Advanced maternal age. Prior . History ======= General History Height 157 cm Height (ft) 5 ft Height (in) 2 in Previous Outcomes 5 Para 1 Matias children born (T) 1 Abortions (A) 3 Matias living children (L) 1 Other: Prior history of Number of fetuses: 1. Maternal Assessment Height 157 cm Height (ft) 5 ft Height (in) 2 in Physical Exam Initial weight 59 kg Initial weight (lb) 130 lb Initial BMI 23.78 kg/m? Dating ======= Ultrasound examination on: 04/05/2019 GA by U/S based upon: AC, BPD, Femur, HC GA by U/S 31 w + 4 d TARIQ by U/S: 06/03/2019 Assigned: Dating performed on 11/17/2018 Based on the LMP Assigned GA 32 w + 1 d Assigned TARIQ: 05/30/2019 General Evaluation Cardiac activity: Present. FHR 136 bpm. movements: visualized. Presentation: cephalic, spine maternal right. Placenta: posterior. Umbilical cord: 3 vessel cord. Amniotic fluid: Amount of AF: normal. MVP 3.7 cm. HALEY 10.3 cm. Q1 2.1 cm, Q2 3.7 cm, Q3 3.1 cm, Q4 1.4 cm. Anatomy Cranium: normal Lateral ventricles: normal Midline falx: normal Cranium: normal shape and size 4-chamber view: normal Stomach: normal Kidneys: normal Bladder: normal Gender: male Wants to know gender: yes Biometry Biometry BPD 79.2 mm 31% 31w 6d Hadlock OFD 95.6 mm 18% 30w 6d Ray HC 278.4 mm 9% 29w 5d [place] AC 284.9 mm 60% 32w 4d Hadlock Femur 62.0 mm 62% 32w 0d Ray Humerus 56.0 mm 64% 32w 4d Ray EFW 1,907 g 31% Narvaez Calculated by: Hadlock ([id number]-FL) EFW (lb) 4 lb EFW (oz) 3 oz Cephalic index 0.83 80% Nicolaides HC / AC 0.98 FL / BPD 0.78 FL / AC 0.22 MVP 3.7 cm HALEY 10.3 cm FHR 136 bpm Head / Face / Neck Rn Burn 4.5 mm Method ======== Transabdominal ultrasound examination, Voluson E10. View: Limited by advanced gestational age. Impression [id number] Follow-up obstetrical ultrasound This is a matias gestation. biometry is consistent with prior dating. The bilateral urinary tract dilitation has resolved. Except where noted above, the anatomy was not reviewed in detail as this is a follow-up study and the anatomy was previously assessed. Normal fluid and movement are noted. Follow-up Follow-up as clinically indicated. DATE OF SERVICE: 04/05/2019 Marilyn Ware [facility]ambi [facility] documented in this encounter Visit Diagnoses Diagnosis affected by genitourinary abnormality of fetus, single or unspecified fetus- Primary Advanced maternal age in multigravida, second trimester documented in this encounter Care Teams Veterinarian Relationship Specialty Start Date End Date Dejuan Garduno ND [address] [place] [address],[address] [place] [address] PCP - General 01/14/17 documented as of this encounter
--- OUTSIDE RECORDS SUMMARY | 2024-04-12 10:22 | XMS_ITS | Encounter Summary ---
Author Organization [facility] Address [address] [place] [address] Care Team Providers Care Coal Chute Worker Name Role Phone Dejuan Gardnuo ND Primary Care Provider + Encounter Details Date Type Department Care Team (Late st Contact Info) Description 01/15/2017 Results Only [facility] - [address] [address] Shaheen Coppola MD [address] [place] [address], [address] [place] [phone] Social History Tobacco Use Types Packs/Day Years Used Date Smoking Tobacco: Never Assessed Comments Yes Sex and Gender Information Value Date Recorded Sex Assigned at Not on file Gender Identity Not on file Sexual Orientation Not on file documented as of this encounter Plan of Treatment Not on file documented as of this encounter Procedures Procedure Name Priority Date/Time Associated Diagnosis Comments REFERRAL TEST 1 Routine 01/15/2017 12:53 EDT documented in this encounter Results * REFERRAL TEST 1 (01/15/2017 12:53 EDT) Test Name Kenia with Y Analysis 01/15/2017 13:52 EDT [facility] Result See Pathology Scanned Report in PRISM. 01/26/2017 12:43 EDT [facility] Comment:Test performed by [place] Ref Lab Integrated Genetics/LabCo rp 01/15/2017 13:52 EDT [facility] Date Sample Shipped 01/15/2017 01/15/2017 13:52 EDT [facility] TOPOGRAPHY UNKNOWN / Unknown 01/15/2017 12:53 EDT 01/15/2017 13:52 EDT Shaheen Coppola MD LAB INFO SERVICE AND SUPPORT & PHONE RESULT [facility] [address] [place] [address] documented in this encounter Visit Diagnoses Not on filedocumented in this encounter Care Teams Coal Chute Worker Relationship Specialty Start Date End Date Dejuan Garduno ND [address] [place] [address],[address] [place] [address] PCP - General 01/14/17 documented as of this encounter
--- OUTSIDE RECORDS SUMMARY | 2024-04-12 10:22 | XMS_ITS | Encounter Summary ---
Author Organization [facility] Address [address] [place] [address] Care Team Providers Care Career Development Specialist Name Role Phone Dejuan Garduno ND Primary Care Provider + Encounter Details Date Type Department Care Team ([facility] st Contact Info) Description 01/14/2017 Abstract [facility] Obstetrics & Midwifery - [address] [address] Shaheen Coppola MD [address] [facility], [address] [place] [phone] Social History Tobacco Use Types Packs/Day Years Used Date Smoking Tobacco: Never Assessed Sex and Gender Information Value Date Recorded Sex Assigned at Not on file Gender Identity Not on file Sexual Orientation Not on file documented as of this encounter Plan of Treatment Not on file documented as of this encounter Visit Diagnoses Not on filedocumented in this encounter Care Teams Career Development Specialist Relationship Specialty Start Date End Date Dejuan Garduno ND [address] [place] [address],[facility] [address] [place] [address] PCP - General 01/14/17 documented as of this encounter
--- OUTSIDE RECORDS SUMMARY | 2024-04-12 10:22 | XMS_ITS | Encounter Summary ---
Author Organization [facility] Address [address] [place] [address] Care Team Providers Care Divine Healer Name Role Phone Dejuan Garduno ND Primary Care Provider + Encounter Details Date Type Department Care Team (Late st Contact Info) Description 01/15/2017 10:[address] [facility] Women[facility] Services - [address] [address] Shaheen Coppola MD [address] [facility], [address] [place] [phone] Genetic counseling and testing (Primary Dx) Discharge Disposition: Auto Discharge Social [...] documented in this encounter Progress Notes * Shaheen Coppola MD - 01/15/2017 1000 EDT This office note has been dictated. documented in this encounter Consult Notes * Sahheen Coppola MD - 01/15/2017 0000 EDT [facility]ST[facility] CONS[facility]ATION - 01/15/2017 This patient is referred by Brianne Rodriguez, pediatric clinical dietician with the [facility] midwifery service. The indication for today's consultation is the patient's concerns about chromosome abnormality riskin . Ms Llamas comes to today's consultation accompanied by her , Pankaj. She reports the present is her third. I did not inquire what became of her other 2 pregnancies, they were either spontaneous or induced terminations. She reports the present has been basically completely uncomplicated. I then went on to try to understand her concerns. She reports that she presented for care somewhat late and missed the opportunity for conventional Down syndrome screening. Because of that, she has had nagging worries about the possibility of abnormalities and wants to discuss what further testing options exist. I went on to explain carefully to the couple that screening in is usually restricted to efforts to identify pregnancies that have an increased risk of chromosome abnormalities such as trisomy 21, the cause of Down syndrome, or trisomy 13 and 18. I emphasized carefully to them that this isnot a comprehensive screen for all different possible genetic abnormalities and that such as screenreally does not exist. We then talked about the fact that her age- related risk of Down syndrome is approximately 1 in 600 based on the fact that she will be 31 at the time of expected delivery. As I was clear in saying, this certainly does not represent an elevated risk by conventional standards. No netheless, Down syndrome screening is routinely offered to all women, regardless of age orprior risk. I then explained to them that cell-free DNA testing is available and could be used in this situation. The advantage of performing a cell-free DNA test is that it would decrease the risk by 100- fold or so if it were normal and that it would have a 99% sensitivity to identify an affected . Another aspect of the cell-free DNA testing that is good is that the incidence of false positives is quite low. I did explain to them that insurance may not cover cell-free DNA testing in a low risk individual and that they should be prepared to cover out of pocket expenses if they want to pursue this testing. Following this discussion, the couple was clear in saying that they did want to pursue cell-free offetal DNA testing and they also wanted to discuss the role of ultrasound. I explained to them that ultrasound is a tool that we do use to identify pregnancies with chromosome abnormalities; however, in the case of Down syndrome it is not terribly sensitive and has a high incidence of false positives. On the other hand, ultrasound is a great tool for the identification of structural abnormalities of various kinds and should be looked at as more of a tool for structural and growth abnormalities as opposed to being a tool for identification of chromosome abnormalities. Following this discussion, we then reviewed family history. The patient's reports that his father is affected with Waldenstrom's macroglobulinemia and I explained to the couple that I am unaware of this having a particular genetic basis for this to be a reason for concern. He then explainedthat his father has 2 half-siblings and 1 full sibling and none of them have any particular problems and on his mother's side also there is no particular issues that he is aware of. He reports that he and his 2 siblings have had good health and no known issues and that he does not know of anybody in his extended family with any potentially inherited things such as cystic fibrosis, spinal muscular atrophy or others. Likewise, the patient herself has a very small family with no siblings. She doeshave one first cousin who is developmentally normal and one aunt who is also normal. She is of general mixed ancestry, as is her partner. Following this discussion, I did review recessive genetic carrier screening with this couple. Giventhe fact that she is nearly 20 weeks gestation, I suggested that carrier screening probably is not terribly relevant to this , but may be something they want to pursue in a subsequent . I did make available to them the possibility of CF and SMA screening should they want it. In summary, this is a 31-year-old 1 at 19 weeks who is worried about the possibility of genetic abnormalities. She will do ultrasound here today, as well as a cell-free DNA test. I explained that results will take about 10 days and will be reported to her referring provider. This consultation was entirely devoted to discussion and planning and lasted 30 minutes. Shaheen Coppola MD 10 43 AM - Shaheen Coppola MD viktoria Dictation ID: [id number] cc: Elizabeth IBARRA, [facility] at [address] [address] documented in this encounter Plan of Treatment Not on file documented as of this encounter Visit Diagnoses Diagnosis Genetic counseling and testing- Primary Genetic counseling documented in this encounter Care Teams Divine Healer Relationship Specialty Start Date End Date Dejuan Garduno ND [address] [place] [address],[facility] [address] [place] [phone] PCP - General 01/14/17 documented as of this encounter
--- OUTSIDE RECORDS SUMMARY | 2024-04-12 10:22 | XMS_ITS | Encounter Summary ---
Author Organization [facility] Address [address] [place] [address] Care Team Providers Care Plant And Machinery Valuer Name Role Phone Dejuan Garduno ND Primary Care Provider + Reason for Visit * Reason Onset Date Comments Appointment Related 02/07/2019 Encounter Details Date Type Department Care Team ([facility] st Contact Info) Description 02/07/2019 Telephone [facility] Obstetrics & Midwifery - [address] [id number] Zach Kimball MD [address] [facility], [address] [place] [address] Appointment Related Social History Tobacco Use Types Packs/Day Years Used Date Smoking Tobacco: Never Assessed Comments Yes Sex and Gender Information Value Date Recorded Sex Assigned at Not on file Gender Identity Not on file Sexual Orientation Not on file documented as of this encounter Miscellaneous Notes * Telephone Encounter - Cate Solares - 02/07/2019 1212 EDT Spoke to patient - scheduled ultrasound 04/05 @10:45 documented in this encounter Plan of Treatment Not on file documented as of this encounter Visit Diagnoses Not on filedocumented in this encounter Care Teams Plant And Machinery Valuer Relationship Specialty Start Date End Date Dejuan Garduno ND [address] [place] [address],[address] [place] [phone] PCP - General 01/14/17 documented as of this encounter
--- OUTSIDE RECORDS SUMMARY | 2024-04-12 10:22 | XMS_ITS | Referral Summary ---
Author Organization [facility] Address [address] [place] [address] Care Team Providers Care Coordinate Measuring Machine Programmer Name Role Phone Dejuan Garduno ND Primary Care Provider + Encounters Date Type Department Care Team Description 03/20/2024 10:13 EDT - 03/20/2024 23:59 EDT Hospital Encounter [facility] Mammography [address] [place] [address] Inconclusive mammogram Discharge Disposition: Home or Self Care 03/10/2024 7:41 EDT - 03/10/2024 23:59 EDT Hospital Encounter [facility] Mammography [address], [place] [phone] Encounter for screening mammogram for malignant neoplasm of breast Discharge Disposition: Home or Self Care from Last 3 Months Allergies No known active allergies Medications No known medications Active Problems Problem Noted Date Diagnosed Date complicated by genitourinary abn ormality 02/02/2019 Advanced maternal age in multigravida, second tr imester 02/02/2019 Resolved Problems Problem Noted Date Diagnosed Date Resolved Date Genetic counseling and testing 01/15/2017 02/02/2019 Fetus with viral damage via mother with problem 01/15/2017 02/02/2019 Social History Tobacco Use Types Packs/Day Years Used Date Smoking Tobacco: Never Assessed Interpersonal Safety Answer Date Record ed Physically Hurt Never 04/15/2020 Verbally Threaten Not on file 04/15/2020 Sex and Gender Information Value Date Recorded Sex Assigned at Not on file Gender Identity Not on file Sexual Orientation Not on file Last Filed Vital Signs Vital Sign Reading Time Taken Comments Blood Pressure - - Pulse - - Temperature - - Respiratory Rate - - Oxygen Saturation - - Inhaled Oxygen Concentration - - Weight - - Height 160 cm (5' 3) 03/10/2024 0750 EDT Body Mass Index - - Plan of Treatment Not on file Procedures Procedure Name Priority Date/Time Associated Diagnosis [...] patient via a lay letter from Radiology. [id number] Narrative 03/20/2024 13:02 EDT MA BREAST DIAGNOSTIC [...] mammography, otherwise relatively symmetric. Resulting Agency Comment [id number] Dejuan Garduno [facility] MAMMOGRAP[facility] ORDERABLES * (ABNORMAL) MA BREAST [...] needed we will contact your patient directly. [id number] Narrative 03/10/2024 10:20 EDT MA BREAST SCREENING [...] breast. Left breast unremarkable. Resulting Agency Comment [id number] Rena [facility] MAMMOGRAPHY O RDERABLES from Last 3 Months Care Teams Coordinate Measuring Machine Programmer Relationship Specialty Start Date End Date Dejuan Garduno ND [address] [place] [phone] PCP - General 01/14/17
--- OUTSIDE RECORDS SUMMARY | 2024-04-12 10:22 | XMS_ITS | Encounter Summary ---
Author Organization [facility] Address [address] [place] [address] Care Team Providers Care Pediatric Speech Language Pathologist Name Role Phone Dejuan Garduno ND Primary Care Provider + Encounter Details Date Type Department Care Team ([facility] st Contact Info) Description 01/15/2017 18:49 EDT - 01/15/2017 18:50 EDT Hospital Encounter [facility] [address] [place] [address] Shaheen Coppola MD [address] [facility], [address] [place] [phone] Discharge Disposition: Home or Self Care Social History Tobacco Use Types Packs/Day Years Used Date Smoking Tobacco: Never Assessed Comments Yes Sex and Gender Information Value Date Recorded Sex Assigned at Not on file Gender Identity Not on file Sexual Orientation Not on file documented as of this encounter Discharge Diagnoses Diagnosis O35.8XX0 Maternal care for other (suspected) abnormality and damage, not applicable or unspecified-O35.8XX0[ICD-10-CM] documented in this encounter Discharge Disposition Disposition Code Departure Means Destination Home or Self Care documented in this encounter Plan of Treatment Not on file documented as of this encounter Visit Diagnoses Not on filedocumented in this encounter Care Teams Pediatric Speech Language Pathologist Relationship Specialty Start Date End Date Dejuan Garduno ND [address] [place] [address],[address] [place] [phone] PCP - General 01/14/17 documented as of this encounter
--- OUTSIDE RECORDS SUMMARY | 2024-04-12 10:22 | XMS_ITS | Encounter Summary ---
Author Organization [facility] Address [address] [place] [address] Care Team Providers Care Legal Process Specialist Name Role Phone Unknown, Provider Primary Care Provider [phone] Dejuan Garduno ND Primary Care Provider + Encounter Details Date Type Department Care Team ([facility] st Contact Info) Description 01/12/2017 Abstract [facility] Obstetrics & Midwifery - [address] [address] Shaheen Coppola MD [address] [facility], [address] [place] [address] Social History Tobacco Use Types Packs/Day Years Used Date Smoking Tobacco: Never Assessed Sex and Gender Information Value Date Recorded Sex Assigned at Not on file Gender Identity Not on file Sexual Orientation Not on file documented as of this encounter Plan of Treatment Not on file documented as of this encounter Visit Diagnoses Not on filedocumented in this encounter Care Teams Legal Process Specialist Relationship Specialty Start Date End Date Unknown, Provider, PCP - General 12/24/15 01/13/17 Dejuan Garduno ND [address] [place] [address],[address] [place] [phone] PCP - General 01/14/17 documented as of this encounter
[2024-04-12 15:13] LABS: HCT 43.6 % (36.0-46.0); HGB 14.7 g/dL (11.2-15.7); MCH 29.2 pg (27.0-33.0); MCHC 33.7 % (32.0-36.0); MCV 87 fL (80-95); MPV 12.3 fL (8.0-11.0); Platelet Count 274 10^3/uL (130-400); RBC 5.03 10^6/uL (3.93-5.22); RDW 11.9 % (11.7-14.6); WBC 6.01 10^3/uL (4.4-10.8)
[2024-04-12 15:55] LABS: Calculated LDL 106 mg/dL (<100); Cholesterol 200 mg/dL (<200); HDL Cholesterol 79 mg/dL (40-60); TSH (W/Ref FT4) 1.72 uIU/mL (0.36-3.74); Triglyceride 75 mg/dL (<150); Vitamin D 25 Total 27.3 ng/mL (30-100)
== END 2024-04-12 10:18 | disposition home or self-care (01) ==
LOC: NCHCN 10:17
PROVIDERS: PCP Family Medicine; Visit Provider Family Medicine
DX: R53.83 Other fatigue (principal); E55.9 Vitamin D deficiency, unspecified; Z13.220 Encounter for screening for lipoid disorders
CPT/HCPCS: 80061; 82306; 85027; 84443